=== PATIENT | female | born 1955 | race Two or more races ===

== ENCOUNTER 2019-11-26 21:58 | Inpatient (IN) | payer OTHER, MEDICAID ==
[~2019-11-26] VITALS: Ht 160 cm; Wt 75.4 kg
[2019-11-26 23:41] LABS: Basophils # (auto) 0 10 ^3/uL (0-0.2); Basophils % (auto) 0.1 % (0.0-2.0); Eosinophils # (auto) 0 10 ^3/uL (0-0.8); Hematocrit 40.6 % (36.0-46.0); Hemoglobin 13.6 g/dL (12.2-16.2); Lymphocytes # (auto) 0.3 10 ^3/uL (0.4-5.4); Lymphocytes % (auto) 2.6 % (10.0-50.0); Mean Corpuscular Hemoglobin 28.8 pg (28.0-32.0); Mean Corpuscular Hgb Conc. 33.5 g/dL (32.0-36.0); Mean Corpuscular Volume 86.1 fL (80.0-100.0); Monocytes # (auto) 0.6 10 ^3/uL (0-1.3); Monocytes % (auto) 5.1 % (0.0-12.0); Neutrophils # (auto) 11.5 10 ^3/uL (1.6-8.6); Neutrophils % (auto) 92.2 % (37.0-80.0); Nucleated Red Blood Cells % 0.4 %; Platelet Count (auto) 167 10^3/uL (140-450); Red Blood Cells 4.72 10^6/uL (4.0-5.20); Red Cell Distribution Width 13.7 % (11.8-14.3); White Blood Cell 12.5 10^3/uL (4.4-10.8)
[2019-11-27 00:11] LABS: Albumin 3.6 g/dL (3.4-5.0); Anion Gap 10 (5-15); Blood Urea Nitrogen 13 mg/dL (7-18); Calcium 9.1 mg/dL (8.5-10.1); Carbon Dioxide 24 mmol/L (21-32); Chloride 101 mmol/L (98-107); Glucose 249 mg/dL (74-106); Potassium 3.2 mmol/L (3.5-5.1); Sodium 135 mmol/L (136-145)
[2019-11-27 00:14] LABS: Alanine Aminotransferase 267 U/L (13-56); Aspartate Aminotransferase 608 U/L (15-37); BUN/Creatinine Ratio 13.5; GFR African American 75 mL/min; GFR Non-African American 62 mL/min
[2019-11-27 00:18] LABS: Alkaline Phosphatase 448 U/L (45-117); Bilirubin, Total 2.9 mg/dL (0.2-1.0); Total Protein 7.6 g/dL (6.4-8.2)
[2019-11-27 06:24] LABS: Urine Bacteria MANY /hpf (None Seen); Urine Blood TRACE /uL (Negative); Urine Mucus MANY (None Seen); Urine Specific Gravity 1.031 (1.001-1.035); Urine WBC 43 /hpf (0 - 5)
[2019-11-27] MEDS ORDERED: POTASSIUM CHL 20MEQ/100ML 100 ML IV ONE ×2 (07:15→09:30)
[2019-11-27] MEDS ORDERED: PIPERACILLIN-TAZOB 3.375GM 100 ML IV ONE (07:15)
[2019-11-27] MEDS ORDERED: SODIUM CHLORIDE 0.9% 1,000 ML IV ONE ×2 (07:15)
[2019-11-27 07:58] LABS: Lactic Acid w/Reflex 2.1 mmol/L (0.4-2.0)
[2019-11-27] MEDS ORDERED: NITROGLYCERIN 0.4 MG SL TAB SL PRN ×2 (09:30→09:45)
[2019-11-27] MEDS ORDERED: MORPHINE SULF INJ 2 MG/ML SYRINGE 1ML IV PRN ×3 (09:30→09:45)
[2019-11-27] MEDS: SOD CHL 0.9%/ KCL 20MEQ 1,000 ML IV SCH ×2 (09:30→19:39)
[2019-11-27] MEDS ORDERED: ONDANSETRON HCL 4 MG/2 ML VIAL IV PRN (09:45)
[2019-11-27] MEDS ORDERED: ACETAMINOPHEN 325 MG TAB PO PRN (09:45)
[2019-11-27] MEDS ORDERED: DEXTROSE (50%) 50ML SYRG IV PRN (09:45)
[2019-11-27] MEDS ORDERED: ALUM & MAG HYDROX-SIMETH LIQ(MAALOX) 30 ML PO PRN (09:45)
[2019-11-27] MEDS ORDERED: DOCUSATE SOD 100 MG CAP PO PRN (09:45)
[2019-11-27] MEDS ORDERED: HYDROcodone-ACET 5/325MG TAB PO PRN (09:45)
[2019-11-27] MEDS ORDERED: LORazepam 0.5 MG TAB PO PRN (09:45)
[2019-11-27] MEDS ORDERED: PANTOPRAZOLE 40 MG/10 ML VIAL INJ IV ONE (10:00)
[2019-11-27] MEDS ORDERED: metroNIDAZOLE 500MG/100ML 100 ML IV ONE (10:00)
[2019-11-27] MEDS ORDERED: hydrALAZINE HCL 25 MG TAB PO PRN (10:00)
[2019-11-27] MEDS ORDERED: cefTRIAXone 1GM/50ML D5W 50 ML IV ONE (10:00)
[2019-11-27 10:14] LABS: Cholesterol 103 mg/dL (< 200)
[2019-11-27 10:18] LABS: HDL Cholesterol 49 mg/dL (40-59); LDL Cholesterol 47 mg/dL (< 100); Triglycerides 76 mg/dL (< 150)
[2019-11-27] MEDS: METOPROLOL TARTRATE 25 MG TAB PO SCH ×2 (10:23→22:55)
[2019-11-27] MEDS: PANTOPRAZOLE 40 MG/10 ML VIAL INJ IV SCH (10:23)
[2019-11-27] MEDS: busPIRone HCL 10 MG TAB PO SCH ×2 (10:23→22:55)
[2019-11-27] MEDS: ASPirin 81 mg TAB PO SCH (10:23)
[2019-11-27] MEDS: LISINOPRIL 10 MG TAB PO SCH (10:33)
[2019-11-27] MEDS: ACCU-CHEK COMFORT CURVE STRIP VI SCH ×3 (11:58→22:47)
[2019-11-27] MEDS: InsuLIN REG 1unit/0.01ml Soln (100units/ml) SC SCH ×2 (11:58→17:41)
[2019-11-27 17:00] VITALS: BP 126/65
--- NOTE | 2019-11-27 17:09 | NUR ---
PATIENT ARRIVED TO UNIT. AWAKE, ALERT, ORIENTEDx4. DENIES ANY DISCOMFORT AT MOMENT. ABDOMEN SOF TO PALPATION, DENIES ABD PAIN, NAUSEA, VOMITING, DIARRHEA. BOWEL SOUNDS ACTIVE TO ALL QUADRANTS. IV PRESENT TO , RAC#[id number]. PT ORIENTED TO ROOM ENVIRONMENT. BED LOCKED AND IN LOWEST POSITION, CALL LIGHT WITHIN REACH.
[2019-11-27] MEDS: metroNIDAZOLE 500MG/100ML 100 ML IV SCH (19:39)
[2019-11-27] MEDS ORDERED: ATEN50TA PO (19:46)
[2019-11-27] MEDS ORDERED: ATO40T PO (19:46)
[2019-11-27] MEDS ORDERED: OMEP20TA PO (19:46)
[2019-11-27] MEDS ORDERED: ASPI325T4 PO (19:46)
[2019-11-27] MEDS ORDERED: METF-370 PO (19:46)
[2019-11-27] MEDS ORDERED: CHOL20009 PO (19:46)
[2019-11-27] MEDS ORDERED: InsuLIN REG 1unit/0.01ml Soln (100units/ml) SC SCH (22:00)
[2019-11-27] MEDS ORDERED: ATORVASTATIN 20 MG TAB PO SCH (22:00)
[2019-11-27 23:06] VITALS: BP 124/69
[2019-11-28 00:22] LABS: Urine Bacteria FEW /hpf (None Seen); Urine Blood Negative /uL (Negative); Urine WBC 31 /hpf (0 - 5)
[2019-11-28 00:31] LABS: Alcohol, Urine < 3.0 mg/dL (0-10); Amphetamine Screen, Urine NEGATIVE (NEGATIVE); Barbiturate Scree,Urine NEGATIVE (NEGATIVE); Benzodiazephine Screen, Urine NEGATIVE (NEGATIVE); Cannabinoid Screen, Urine NEGATIVE (NEGATIVE); Cocaine Screen, Urine NEGATIVE (NEGATIVE); Opiate Scree,Urine NEGATIVE (NEGATIVE); Phencyclidine Screen, Urine NEGATIVE (NEGATIVE)
[2019-11-28] MEDS: metroNIDAZOLE 500MG/100ML 100 ML IV SCH ×3 (03:52→19:37)
[2019-11-28] MEDS: SOD CHL 0.9%/ KCL 20MEQ 1,000 ML IV SCH ×2 (04:35→15:21)
[2019-11-28 05:00] VITALS: BP 127/51
[2019-11-28] MEDS: ACCU-CHEK COMFORT CURVE STRIP VI SCH ×3 (05:50→18:06)
[2019-11-28] MEDS: InsuLIN REG 1unit/0.01ml Soln (100units/ml) SC SCH ×3 (05:55→18:00)
--- NOTE | 2019-11-28 08:30 | NUR ---
DR. HARGROVE IN TO SEE PT, PLANNED PROCEDURE AWARENESS. PLANNED ERCP. PT NPO AT THIS TIME.
[2019-11-28 09:00] VITALS: BP 136/70
[2019-11-28] MEDS: cefTRIAXone 1GM/50ML D5W 50 ML IV SCH (09:14)
[2019-11-28] MEDS: busPIRone HCL 10 MG TAB PO SCH (09:18)
[2019-11-28] MEDS: METOPROLOL TARTRATE 25 MG TAB PO SCH (09:18)
[2019-11-28] MEDS: ASPirin 81 mg TAB PO SCH (09:18)
[2019-11-28] MEDS: PANTOPRAZOLE 40 MG/10 ML VIAL INJ IV SCH (09:18)
[2019-11-28] MEDS: LISINOPRIL 10 MG TAB PO SCH (09:19)
[2019-11-28 09:28] LABS: INR 1.06 (0.9-1.15)
[2019-11-28 13:00] VITALS: BP 134/63
[2019-11-28] MEDS ORDERED: DEXTROSE (50%) 50ML SYRG IV PRN (13:45)
--- NOTE | 2019-11-28 14:50 | NUR ---
PT TRANSPORTED TO PRE-OP VIA BED. NO S/S OF DISTRESS.
[2019-11-28] MEDS ORDERED: IOHEXOL 300 MG/ML 100ML BOTTLE IJ ONE (15:04)
[2019-11-28] MEDS ORDERED: SUCCINYLCHOLINE CHLORIDE 20 MG/ML 10ML VIAL IV ONE (15:34)
[2019-11-28] MEDS ORDERED: LIDOCAINE 1% (LOCAL ANESTH.) PF 5ml SDV ONE (15:34)
[2019-11-28] MEDS ORDERED: MIDAZOLAM HCL 1MG/1ML-2 ML VIAL ONE (15:37)
[2019-11-28] MEDS ORDERED: ETOMIDATE (2MG/ML) 20ML VIAL IV ONE (15:38)
[2019-11-28] MEDS ORDERED: METOCLOPRAMIDE HCL 5MG/ml INJ 2ml VIAL ONE (15:38)
[2019-11-28] MEDS ORDERED: ROCURONIUM 10MG/ML 10ML VIAL IV ONE (15:39)
[2019-11-28] MEDS ORDERED: fentaNYL CITRATE 100 MCG/2 ML VL ONE (15:55)
[2019-11-28] MEDS ORDERED: NEOSTIGMINE 1 MG/ML INJ (10mg/10ML VIAL) ONE (16:46)
[2019-11-28] MEDS ORDERED: GLYCOPYRROLATE 0.2 MG/ML 1ML VIAL ONE (16:46)
[2019-11-28] MEDS ORDERED: NALOXONE HCL 0.4 MG/ML VIAL IV PRN (17:00)
[2019-11-28] MEDS ORDERED: ACCU-CHEK COMFORT CURVE STRIP VI ONE (17:00)
[2019-11-28] MEDS ORDERED: ONDANSETRON HCL 4 MG/2 ML VIAL IV PRN (17:00)
[2019-11-28] MEDS ORDERED: HYDROmorphone HCL 2 MG/ML VL IV PRN ×2 (17:00)
--- NOTE | 2019-11-28 17:45 | NUR ---
PT BACK TO UNIT. AWAKE, ALERT, ORIENTEDx4. DENIES ANY PAIN AT MOMENT. EFFORTLESS BREATHING ON 2LNC. BED LOCKED AND IN LOWEST POSITION, CALL LIGHT WITHIN REACH.
[2019-11-28 17:46] VITALS: BP 139/63
[2019-11-28 22:00] VITALS: BP 138/57
[2019-11-29] MEDS: SOD CHL 0.9%/ KCL 20MEQ 1,000 ML IV SCH ×2 (00:01→16:25)
[2019-11-29] MEDS: ACCU-CHEK COMFORT CURVE STRIP VI SCH ×4 (00:01→18:27)
[2019-11-29] MEDS: InsuLIN REG 1unit/0.01ml Soln (100units/ml) SC SCH ×4 (00:05→18:00)
[2019-11-29] MEDS: metroNIDAZOLE 500MG/100ML 100 ML IV SCH ×3 (04:08→22:22)
[2019-11-29 05:00] VITALS: BP 135/63
[2019-11-29 06:08] LABS: Basophils # (auto) 0 10 ^3/uL (0-0.2); Basophils % (auto) 0.3 % (0.0-2.0); Eosinophils # (auto) 0 10 ^3/uL (0-0.8); Eosinophils % (auto) 0.1 % (0.0-7.0); Hematocrit 37.1 % (36.0-46.0); Hemoglobin 12.6 g/dL (12.2-16.2); Lymphocytes # (auto) 1.1 10 ^3/uL (0.4-5.4); Lymphocytes % (auto) 15.6 % (10.0-50.0); Mean Corpuscular Hemoglobin 29.3 pg (28.0-32.0); Mean Corpuscular Hgb Conc. 33.8 g/dL (32.0-36.0); Mean Corpuscular Volume 86.5 fL (80.0-100.0); Monocytes # (auto) 0.6 10 ^3/uL (0-1.3); Monocytes % (auto) 8.6 % (0.0-12.0); Neutrophils # (auto) 5.3 10 ^3/uL (1.6-8.6); Neutrophils % (auto) 75.4 % (37.0-80.0); Platelet Count (auto) 159 10^3/uL (140-450); Red Blood Cells 4.29 10^6/uL (4.0-5.20); Red Cell Distribution Width 13.5 % (11.8-14.3)
[2019-11-29 06:18] LABS: Potassium 3.5 mmol/L (3.5-5.1)
[2019-11-29 06:30] LABS: Albumin 2.9 g/dL (3.4-5.0); BUN/Creatinine Ratio 9.7; Calcium 8.3 mg/dL (8.5-10.1); Total Protein 6.2 g/dL (6.4-8.2)
--- NOTE | 2019-11-29 08:00 | NUR ---
DR. HARGROVE at bed side discussing POC/ERCP results with patient. Patient verbalizes understanding.
[2019-11-29 08:56] VITALS: BP 136/56
[2019-11-29] MEDS: cefTRIAXone 1GM/50ML D5W 50 ML IV SCH (09:28)
[2019-11-29] MEDS: PANTOPRAZOLE 40 MG/10 ML VIAL INJ IV SCH (09:29)
--- NOTE | 2019-11-29 09:49 | NUR ---
Dr. Loving at bed side discussing POC. Patient verbalizes understanding. MD requested to call patients daughter BLADE for update. MD harper.
--- NOTE | 2019-11-29 12:22 | NUR ---
Nutrition Assessment Note please see attached link for complete assessment Est Energy needs BW 76 [id number] kcals (23-25 kcal/kgBW), Est Protein needs: 76-83 gms/day (1.0-1.1 gm/kgBW). Will continue to monitor and reassess prn. Addendum: 11/29/19 at [address] Amended: Links added.
[2019-11-29 13:00] VITALS: BP 133/68
--- NOTE | 2019-11-29 16:00 | NUR ---
IV removal RAC IV noted to be leaking, IV DC'd with clean sterile technique, catheter fully intact. Pressure dressing applied to site. Patient tolerated well.
--- NOTE | 2019-11-29 16:42 | NUR ---
IV removal LH IV noted to be leaking, IV DC'd with clean sterile technique, catheter fully intact. Pressure dressing applied to site. Patient tolerated well.
[2019-11-29 16:55] VITALS: BP 139/73
--- NOTE | 2019-11-29 18:02 | NUR ---
IV insertion IV access obtained, via clean sterile technique by inserting 22 gauge catheter at LFA after 1 attempt. IV secured properly. No trauma to site. Patient tolerated well.
[2019-11-29 20:00] VITALS: BP 133/60
[2019-11-29 22:00] VITALS: BP 138/65
[2019-11-30 05:00] VITALS: BP 161/74
[2019-11-30] MEDS: metroNIDAZOLE 500MG/100ML 100 ML IV SCH ×2 (05:39→12:41)
[2019-11-30] MEDS: SOD CHL 0.9%/ KCL 20MEQ 1,000 ML IV SCH (05:40)
[2019-11-30] MEDS: InsuLIN REG 1unit/0.01ml Soln (100units/ml) SC SCH ×3 (05:42→12:42)
[2019-11-30] MEDS: ACCU-CHEK COMFORT CURVE STRIP VI SCH ×3 (05:42→12:00)
[2019-11-30 07:18] LABS: Potassium 3.5 mmol/L (3.5-5.1)
--- NOTE | 2019-11-30 07:23 | NUR ---
PT RESTED WELL THROUGHOUT THE NIGHT; NO C/O PAIN;IV INTACT VSS.CALL LANG IN REACH.
--- NOTE | 2019-11-30 07:30 | NUR ---
Opening Shift Note Assumed care of patient, awake and alert. No S/S of distress/SOB or pain. Instructed on POC and to call for assist PRN, will continue to monitor for changes Q1hr and PRN. Fall precautions in place per safety protocol.
[2019-11-30 07:34] LABS: Albumin 2.9 g/dL (3.4-5.0); BUN/Creatinine Ratio 7.9; Calcium 8.6 mg/dL (8.5-10.1); Total Protein 6.2 g/dL (6.4-8.2)
[2019-11-30 08:34] VITALS: BP 141/79
[2019-11-30] MEDS: PANTOPRAZOLE 40 MG/10 ML VIAL INJ IV SCH (09:39)
[2019-11-30] MEDS: cefTRIAXone 1GM/50ML D5W 50 ML IV SCH (09:40)
[2019-11-30 12:32] VITALS: BP 141/74
[2019-11-30] MEDS ORDERED: METR500T PO (15:06)
[2019-11-30] MEDS ORDERED: LEVO500T21 PO (15:06)
[2019-11-30 15:44] VITALS: BP 141/74
--- NOTE | 2019-11-30 16:30 | NUR ---
Discharge instructions given as ordered. Encourage to follow up with PMD as instructed. All questions and concerns addressed. Patient verbalized understanding. Medication reconciliation form completed and copy given to patient. IV removed with catheter intact, pressure dressing applied. Telemetry unit returned to ICU. Patient taken to vehicle via wheelchair with all personal belongings, accompanied by staff . No distress noted at time of departure.
== END 2019-11-30 16:30 | disposition home or self-care (01) | DRG 436 ==
LOC: ER 22:07 → TELE 22:08 → TELE-WESTW 11-27 17:02
PROVIDERS: ADMIT Hospitalist; ATTEND Internal Medicine
PROC: 0FBC8ZX Excision of Ampulla of Vater, Via Natural or Artificial Opening Endoscopic, Diagnostic (ICD-10-PCS; 2019-11-28)
PROC: BF101ZZ Fluoroscopy of Bile Ducts using Low Osmolar Contrast (ICD-10-PCS; 2019-11-28)
PROC: 0F798DZ Dilation of Common Bile Duct with Intraluminal Device, Via Natural or Artificial Opening Endoscopic (ICD-10-PCS; principal; 2019-11-28 15:30)
DX: C24.1 Malignant neoplasm of ampulla of Vater (principal); K80.51 Calculus of bile duct without cholangitis or cholecystitis with obstruction; R65.10 Systemic inflammatory response syndrome (SIRS) of non-infectious origin without acute organ dysfunction; I95.9 Hypotension, unspecified; E11.9 Type 2 diabetes mellitus without complications; E66.01 Morbid (severe) obesity due to excess calories; Z20.828 Contact with and (suspected) exposure to other viral communicable diseases; K76.0 Fatty (change of) liver, not elsewhere classified; E78.5 Hyperlipidemia, unspecified; E87.6 Hypokalemia; I10 Essential (primary) hypertension; F41.9 Anxiety disorder, unspecified; Z79.4 Long term (current) use of insulin; Z68.29 Body mass index [BMI] 29.0-29.9, adult
CPT/HCPCS: 36415; 71045; 74018; 74176; 74181; 76001; 76705; 80053; 80061; 80307; 81001; 82962; 83036; 83605; 83690; 83735; 84484; 85025; 85610; 87040; 87086; 87426; 93005; C9113; G0378; J0330; J0696; J1815; J2250; J2405; J2543; J3480; J3490

== ENCOUNTER 2020-06-22 12:53 | Inpatient (IN) | payer OTHER, MEDICAID ==
[~2020-06-22] VITALS: Ht 154.9 cm; Wt 78.9 kg
[~2020-06-22 12:53] MED LIST: ASPI325T4 PO; ATEN50TA PO; ATO40T PO; CHOL20009 PO; LEVO500T31 PO; METF-370 PO; METR500T PO; OMEP20TA PO
[2020-06-22 13:59] LABS: Basophils # (auto) 0.1 10 ^3/uL (0-0.2); Basophils % (auto) 0.6 % (0.0-2.0); Eosinophils # (auto) 0 10 ^3/uL (0-0.8); Eosinophils % (auto) 0.3 % (0.0-7.0); Hematocrit 41.7 % (36.0-46.0); Hemoglobin 14.3 g/dL (12.2-16.2); Lymphocytes # (auto) 1.1 10 ^3/uL (0.4-5.4); Lymphocytes % (auto) 10.4 % (10.0-50.0); Mean Corpuscular Hemoglobin 31.1 pg (28.0-32.0); Mean Corpuscular Hgb Conc. 34.2 g/dL (32.0-36.0); Mean Corpuscular Volume 90.8 fL (80.0-100.0); Monocytes # (auto) 1.1 10 ^3/uL (0-1.3); Monocytes % (auto) 9.6 % (0.0-12.0); Neutrophils # (auto) 8.7 10 ^3/uL (1.6-8.6); Neutrophils % (auto) 79.1 % (37.0-80.0); Nucleated Red Blood Cells % 0.1 %; Platelet Count (auto) 222 10^3/uL (140-450); Red Blood Cells 4.59 10^6/uL (4.0-5.20); Red Cell Distribution Width 16.1 % (11.8-14.3)
[2020-06-22 14:18] LABS: Albumin 2.1 g/dL (3.4-5.0); Anion Gap 11 (5-15); Blood Urea Nitrogen 31 mg/dL (7-18); Calcium 8.7 mg/dL (8.5-10.1); Carbon Dioxide 20 mmol/L (21-32); Chloride 99 mmol/L (98-107); Glucose 290 mg/dL (74-106); Magnesium 2.9 mg/dL (1.6-2.6); Potassium 4.4 mmol/L (3.5-5.1); Sodium 130 mmol/L (136-145)
[2020-06-22 14:35] LABS: Alanine Aminotransferase 614 U/L (13-56); Alkaline Phosphatase 602 U/L (45-117); Aspartate Aminotransferase 2780 U/L (15-37); Bilirubin, Total 16.5 mg/dL (0.2-1.0); GFR African American 24 mL/min; GFR Non-African American 20 mL/min; Total Protein 6.9 g/dL (6.4-8.2)
[2020-06-22 14:37] LABS: BUN/Creatinine Ratio 12.2
[2020-06-22] MEDS ORDERED: ONDANSETRON HCL 4 MG/2 ML VIAL IV ONE (16:45)
[2020-06-22 16:58] LABS: INR 1.23 (0.9-1.15); Partial Thromboplastin Time 30.5 sec (23.0-31.2)
[2020-06-22] MEDS ORDERED: NITROGLYCERIN 0.4 MG SL TAB SL PRN (18:30)
[2020-06-22] MEDS ORDERED: MORPHINE SULF INJ 2 MG/ML SYRINGE 1ML IV PRN ×2 (18:30→19:00)
[2020-06-22] MEDS ORDERED: cefTRIAXone 1GM/50ML D5W 50 ML IV ONE (19:00)
[2020-06-22] MEDS: SODIUM CHLORIDE 0.9% 1,000 ML IV SCH (19:00)
[2020-06-22] MEDS ORDERED: FAMOTIDINE (10MG/ML) 2ML VL IV SCH (19:00)
[2020-06-22] MEDS ORDERED: LORazepam 0.5 MG TAB PO PRN (19:00)
[2020-06-22] MEDS ORDERED: PROMETHAZINE HCL 25 MG/ML 1ML IV PRN (19:00)
[2020-06-22] MEDS ORDERED: DEXTROSE (50%) 50ML SYRG IV PRN (19:00)
[2020-06-22 19:09] LABS: Amylase 126 U/L (25-115); Lipase 1018 U/L (73-393)
[2020-06-22 21:03] VITALS: BP 137/80
[2020-06-22 21:09] LABS: Urine Bacteria NONE SEEN /hpf (None Seen); Urine Blood 3+ /uL (Negative); Urine Budding Yeast MODERATE /hpf (None Seen); Urine Specific Gravity 1.016 (1.001-1.035); Urine WBC 1497 /hpf (0 - 5); Urine WBC Clumps PRESENT /hpf (None Seen)
[2020-06-22] MEDS: metroNIDAZOLE 500MG/100ML 100 ML IV SCH (21:34)
[2020-06-22] MEDS: ACCU-CHEK COMFORT CURVE STRIP VI SCH (21:47)
[2020-06-22 21:49] LABS: Creatine Kinase IFCC > 14000 U/L (26-192)
[2020-06-22] MEDS ORDERED: FAMO-12 PO (21:53)
[2020-06-22] MEDS ORDERED: ASPI-543 PO (21:53)
[2020-06-22] MEDS: InsuLIN REG 1unit/0.01ml Soln (100units/ml) SC SCH (21:58)
[2020-06-22 22:00] VITALS: BP 125/56
[2020-06-22 23:18] VITALS: BP 137/80
[2020-06-23 05:00] VITALS: BP 123/62
[2020-06-23] MEDS: metroNIDAZOLE 500MG/100ML 100 ML IV SCH ×3 (05:35→22:08)
[2020-06-23] MEDS: SODIUM CHLORIDE 0.9% 1,000 ML IV SCH ×3 (05:35→22:20)
[2020-06-23 05:52] LABS: Basophils # (auto) 0.1 10 ^3/uL (0-0.2); Basophils % (auto) 0.7 % (0.0-2.0); Eosinophils # (auto) 0.1 10 ^3/uL (0-0.8); Eosinophils % (auto) 0.8 % (0.0-7.0); Hematocrit 39.4 % (36.0-46.0); Hemoglobin 13.5 g/dL (12.2-16.2); Lymphocytes # (auto) 0.9 10 ^3/uL (0.4-5.4); Lymphocytes % (auto) 10.8 % (10.0-50.0); Mean Corpuscular Hemoglobin 31.2 pg (28.0-32.0); Mean Corpuscular Hgb Conc. 34.2 g/dL (32.0-36.0); Mean Corpuscular Volume 91.1 fL (80.0-100.0); Monocytes % (auto) 11.5 % (0.0-12.0); Neutrophils # (auto) 6.6 10 ^3/uL (1.6-8.6); Neutrophils % (auto) 76.2 % (37.0-80.0); Nucleated Red Blood Cells % 0.2 %; Platelet Count (auto) 177 10^3/uL (140-450); Red Blood Cells 4.32 10^6/uL (4.0-5.20); White Blood Cell 8.7 10^3/uL (4.4-10.8)
[2020-06-23 06:04] LABS: Albumin 1.8 g/dL (3.4-5.0); Calcium 8.3 mg/dL (8.5-10.1); INR 1.26 (0.9-1.15); Partial Thromboplastin Time 30.2 sec (23.0-31.2); Potassium 4.1 mmol/L (3.5-5.1)
[2020-06-23 06:23] LABS: Bilirubin, Total 14.1 mg/dL (0.2-1.0)
[2020-06-23] MEDS: ACCU-CHEK COMFORT CURVE STRIP VI SCH ×4 (06:24→22:09)
[2020-06-23] MEDS: InsuLIN REG 1unit/0.01ml Soln (100units/ml) SC SCH ×4 (06:30→22:14)
[2020-06-23 08:00] VITALS: BP 122/67
[2020-06-23 09:00] VITALS: BP 122/67
[2020-06-23] MEDS: cefTRIAXone 1GM/50ML D5W 50 ML IV SCH (09:24)
[2020-06-23] MEDS: FAMOTIDINE (10MG/ML) 2ML VL IV SCH (09:25)
[2020-06-23 13:00] VITALS: BP 130/68
[2020-06-23 17:00] VITALS: BP 141/75
[2020-06-23 22:00] VITALS: BP 132/64
[2020-06-24 05:00] VITALS: BP 133/63
[2020-06-24] MEDS: metroNIDAZOLE 500MG/100ML 100 ML IV SCH (05:56)
[2020-06-24] MEDS: ACCU-CHEK COMFORT CURVE STRIP VI SCH ×4 (05:57→21:47)
[2020-06-24] MEDS: InsuLIN REG 1unit/0.01ml Soln (100units/ml) SC SCH ×4 (06:09→21:46)
[2020-06-24 08:00] VITALS: BP_SYST 127; BP_SYST 149; BP_DIAS 65; BP_DIAS 97
[2020-06-24] MEDS: cefTRIAXone 1GM/50ML D5W 50 ML IV SCH (09:00)
[2020-06-24] MEDS: FAMOTIDINE (10MG/ML) 2ML VL IV SCH (09:57)
[2020-06-24] MEDS: SODIUM CHLORIDE 0.9% 1,000 ML IV SCH ×2 (09:58→21:00)
[2020-06-24 12:00] VITALS: BP 140/62
[2020-06-24 17:00] VITALS: BP 135/65
[2020-06-24 21:35] VITALS: BP 140/69
[2020-06-25 05:11] VITALS: BP 143/64
[2020-06-25 06:26] LABS: Albumin 1.4 g/dL (3.4-5.0); Calcium 8.2 mg/dL (8.5-10.1); Magnesium 3.2 mg/dL (1.6-2.6); Potassium 4.7 mmol/L (3.5-5.1)
[2020-06-25] MEDS: InsuLIN REG 1unit/0.01ml Soln (100units/ml) SC SCH ×4 (06:28→22:07)
[2020-06-25] MEDS: ACCU-CHEK COMFORT CURVE STRIP VI SCH ×4 (06:28→21:47)
[2020-06-25] MEDS: SODIUM CHLORIDE 0.9% 1,000 ML IV SCH ×3 (06:30→21:00)
[2020-06-25 06:51] LABS: BUN/Creatinine Ratio 13.2; Bilirubin, Total 12.3 mg/dL (0.2-1.0); Total Protein 5.4 g/dL (6.4-8.2)
[2020-06-25] MEDS ORDERED: SODIUM BICARBONATE 8.4 % INJ 50ML VIAL IV ONE ×2 (08:30→10:00)
[2020-06-25 08:56] VITALS: BP 147/68
[2020-06-25] MEDS: FAMOTIDINE (10MG/ML) 2ML VL IV SCH (10:00)
[2020-06-25] MEDS ORDERED: cefTRIAXone 1GM/50ML D5W 50 ML IV ONE (11:00)
[2020-06-25] MEDS ORDERED: SODIUM CHLORIDE 0.9% 1,000 ML IV SCH ×2 (11:00→12:30)
[2020-06-25 13:00] VITALS: BP 153/71
[2020-06-25 13:48] LABS: Phosphorus 4.9 mg/dL (2.5-4.90)
[2020-06-25] MEDS ORDERED: LORazepam 2MG/ML-1ML VIAL IV ONE (14:45)
[2020-06-25] MEDS: metroNIDAZOLE 500MG/100ML 100 ML IV SCH ×2 (15:30→21:55)
[2020-06-25 17:00] VITALS: BP 147/75
[2020-06-25 22:00] VITALS: BP 124/55
[2020-06-26] MEDS: SODIUM CHLORIDE 0.9% 1,000 ML IV SCH ×2 (04:33→15:52)
[2020-06-26] MEDS: metroNIDAZOLE 500MG/100ML 100 ML IV SCH (05:21)
[2020-06-26 05:44] VITALS: BP 136/65
[2020-06-26] MEDS: ACCU-CHEK COMFORT CURVE STRIP VI SCH ×4 (06:06→23:09)
[2020-06-26] MEDS: InsuLIN REG 1unit/0.01ml Soln (100units/ml) SC SCH ×4 (06:06→23:05)
[2020-06-26 07:09] LABS: Basophils # (auto) 0 10 ^3/uL (0-0.2); Basophils % (auto) 0.3 % (0.0-2.0); Eosinophils # (auto) 0.1 10 ^3/uL (0-0.8); Eosinophils % (auto) 0.9 % (0.0-7.0); Hematocrit 40.6 % (36.0-46.0); Hemoglobin 13.7 g/dL (12.2-16.2); Lymphocytes # (auto) 1.1 10 ^3/uL (0.4-5.4); Lymphocytes % (auto) 9.4 % (10.0-50.0); Mean Corpuscular Hgb Conc. 33.8 g/dL (32.0-36.0); Mean Corpuscular Volume 91.7 fL (80.0-100.0); Monocytes # (auto) 1.1 10 ^3/uL (0-1.3); Monocytes % (auto) 9.9 % (0.0-12.0); Neutrophils # (auto) 9.2 10 ^3/uL (1.6-8.6); Neutrophils % (auto) 79.5 % (37.0-80.0); Nucleated Red Blood Cells % 0.1 %; Platelet Count (auto) 201 10^3/uL (140-450); Red Blood Cells 4.43 10^6/uL (4.0-5.20); Red Cell Distribution Width 16.1 % (11.8-14.3); White Blood Cell 11.6 10^3/uL (4.4-10.8)
[2020-06-26 07:27] LABS: Albumin 1.4 g/dL (3.4-5.0); BUN/Creatinine Ratio 12.4; Calcium 8.2 mg/dL (8.5-10.1); INR 1.44 (0.9-1.15); Magnesium 2.8 mg/dL (1.6-2.6); Potassium 5.2 mmol/L (3.5-5.1)
[2020-06-26 07:36] LABS: Bilirubin, Total 13.5 mg/dL (0.2-1.0); Total Protein 5.6 g/dL (6.4-8.2)
[2020-06-26 09:00] VITALS: BP 134/66
[2020-06-26] MEDS ORDERED: cefTRIAXone 1GM/50ML D5W 50 ML IV SCH (09:00)
[2020-06-26] MEDS ORDERED: ALBUTEROL SULF 2.5 MG/0.5ML(0.5%) NEB SOLN NEB ONE ×2 (09:15→19:00)
[2020-06-26] MEDS ORDERED: SODIUM BICARBONATE 8.4% INJ 50ML SYRINGE IV ONE (09:15)
[2020-06-26] MEDS ORDERED: BUMETANIDE 2.5mg/10ml (0.25 mg/ml) INJ IV ONE ×2 (09:15→19:30)
[2020-06-26] MEDS ORDERED: IOHEXOL 300 MG/ML 100ML BOTTLE IJ ONE (09:27)
[2020-06-26] MEDS ORDERED: SODIUM BICARBONATE 8.4 % INJ 50ML VIAL IV ONE ×3 (09:30→19:30)
[2020-06-26] MEDS: FAMOTIDINE (10MG/ML) 2ML VL IV SCH (10:32)
[2020-06-26 11:27] LABS: Urine Bacteria MANY /hpf (None Seen); Urine Blood 3+ /uL (Negative); Urine Specific Gravity 1.016 (1.001-1.035); Urine WBC 1140 /hpf (0 - 5); Urine WBC Clumps PRESENT /hpf (None Seen)
[2020-06-26 11:54] LABS: Protein, Urine 356.4 mg/dL (0.0-11.9)
[2020-06-26 13:00] VITALS: BP 113/52
[2020-06-26 17:00] VITALS: BP 117/50
[2020-06-26 18:48] LABS: BUN/Creatinine Ratio 14.3; Calcium 8.1 mg/dL (8.5-10.1)
[2020-06-26 18:55] LABS: Potassium 5.6 mmol/L (3.5-5.1)
[2020-06-26] MEDS ORDERED: DEXTROSE (50%) 50ML SYRG IV ONE (19:00)
[2020-06-26] MEDS ORDERED: CALCIUM GLUC 1,000mg/50ml-NS 50 ML IV ONE (19:00)
[2020-06-26] MEDS ORDERED: InsuLIN REG 1unit/0.01ml Soln (100units/ml) IV ONE (19:00)
[2020-06-26] MEDS ORDERED: SODIUM CHLORIDE 0.9% 1,000 ML IV SCH (19:30)
[2020-06-26] MEDS ORDERED: SODIUM BICARBONATE 50ML VIAL 150 ML in D5W 5% 1,000 ML IV ONE (19:45)
[2020-06-26 22:00] VITALS: BP 125/55
[2020-06-27 05:00] VITALS: BP 137/60
[2020-06-27] MEDS: BUMETANIDE 2.5mg/10ml (0.25 mg/ml) INJ IV SCH ×2 (06:37→19:07)
[2020-06-27] MEDS: InsuLIN REG 1unit/0.01ml Soln (100units/ml) SC SCH ×4 (06:38→22:10)
[2020-06-27] MEDS: ACCU-CHEK COMFORT CURVE STRIP VI SCH ×4 (06:38→22:09)
[2020-06-27 06:53] LABS: Albumin 1.3 g/dL (3.4-5.0)
[2020-06-27] MEDS ORDERED: IOHEXOL 300 MG/ML 100ML BOTTLE IJ ONE (07:05)
[2020-06-27 07:19] LABS: BUN/Creatinine Ratio 14.4; Total Protein 5.4 g/dL (6.4-8.2)
[2020-06-27] MEDS ORDERED: FAMOTIDINE (10MG/ML) 2ML VL IV ONE (07:25)
[2020-06-27] MEDS ORDERED: fentaNYL CITRATE 100 MCG/2 ML VL ONE ×2 (07:27→12:56)
[2020-06-27] MEDS ORDERED: MIDAZOLAM HCL 1MG/1ML-2 ML VIAL ONE ×2 (07:28→12:57)
[2020-06-27] MEDS ORDERED: GLYCOPYRROLATE 0.2 MG/ML 1ML VIAL ONE (07:28)
[2020-06-27] MEDS ORDERED: ONDANSETRON HCL 4 MG/2 ML VIAL ONE (07:28)
[2020-06-27] MEDS ORDERED: PROPOFOL 10 MG/ML 20 ML IV ONE (07:28)
[2020-06-27] MEDS ORDERED: KETAMINE HCL 10 ML ONE (08:03)
[2020-06-27] MEDS ORDERED: NEOMYCIN-BACITRACIN-POLYM 15GM TOP OINT TOP ONE (08:20)
[2020-06-27] MEDS ORDERED: HYDROmorphone HCL 2 MG/ML VL IV PRN (08:45)
[2020-06-27] MEDS ORDERED: ONDANSETRON HCL 4 MG/2 ML VIAL IV PRN (08:45)
[2020-06-27] MEDS: FAMOTIDINE (10MG/ML) 2ML VL IV SCH (10:00)
[2020-06-27] MEDS ORDERED: HEPARIN 1,000 UNITS/ml 1ML VIAL IV ONE (10:30)
[2020-06-27] MEDS ORDERED: MORPHINE SULF INJ 2 MG/ML SYRINGE 1ML IV ONE (10:30)
[2020-06-27] MEDS ORDERED: SODIUM CHL 0.9% 1000 ML BAG XX ONE (10:45)
[2020-06-27] MEDS ORDERED: cefTRIAXone 1GM/50ML D5W 50 ML IV ONE (11:00)
[2020-06-27 12:12] LABS: Hepatitis A Ab IgM Negative
[2020-06-27 12:13] LABS: Hepatitis B Core IgM Negative; Hepatitis B Surface Antigen Negative (Negative); Hepatitis C Antibody Negative (Negative)
[2020-06-27 12:35] VITALS: BP 137/62
[2020-06-27] MEDS ORDERED: LIDOCAINE 2%HCL (LOCAL ANESTH.) INJ 20ML MDV ONE (12:57)
[2020-06-27 16:35] VITALS: BP 114/76
[2020-06-27 22:22] VITALS: BP 127/50
[2020-06-28] MEDS ORDERED: cefTRIAXone 1GM/50ML D5W 50 ML IV SCH (09:00)
[2020-06-28] MEDS ORDERED: predniSONE 20 MG TAB PO SCH (10:00)
== END 2020-06-28 01:49 | disposition short-term general hospital (02) | DRG 444 ==
LOC: ER 12:53 → TELE 18:20 → TELE-CENTR 20:01
PROVIDERS: ADMIT Internal Medicine; ATTEND Internal Medicine
PROC: BF101ZZ Fluoroscopy of Bile Ducts using Low Osmolar Contrast (ICD-10-PCS; 2020-06-27)
PROC: 06HM33Z Insertion of Infusion Device into Right Femoral Vein, Percutaneous Approach (ICD-10-PCS; 2020-06-27)
PROC: B54BZZA Ultrasonography of Right Lower Extremity Veins, Guidance (ICD-10-PCS; 2020-06-27)
PROC: 5A1D70Z Performance of Urinary Filtration, Intermittent, Less than 6 Hours Per Day (ICD-10-PCS; 2020-06-27)
PROC: 0FB98ZX Excision of Common Bile Duct, Via Natural or Artificial Opening Endoscopic, Diagnostic (ICD-10-PCS; principal; 2020-06-27 07:35)
DX: K83.1 Obstruction of bile duct (principal); N17.0 Acute kidney failure with tubular necrosis; C25.9 Malignant neoplasm of pancreas, unspecified; M62.82 Rhabdomyolysis; I82.441 Acute embolism and thrombosis of right tibial vein; R65.10 Systemic inflammatory response syndrome (SIRS) of non-infectious origin without acute organ dysfunction; D68.9 Coagulation defect, unspecified; E87.2 Acidosis; E44.0 Moderate protein-calorie malnutrition; E87.5 Hyperkalemia; K72.90 Hepatic failure, unspecified without coma; Z53.8 Procedure and treatment not carried out for other reasons; K57.10 Diverticulosis of small intestine without perforation or abscess without bleeding; E78.5 Hyperlipidemia, unspecified; Z20.822 Contact with and (suspected) exposure to COVID-19; E11.9 Type 2 diabetes mellitus without complications; R58 Hemorrhage, not elsewhere classified; I10 Essential (primary) hypertension; E66.9 Obesity, unspecified; Z68.28 Body mass index [BMI] 28.0-28.9, adult; Z83.3 Family history of diabetes mellitus; Z86.16 Personal history of COVID-19; Z87.01 Personal history of pneumonia (recurrent)
CPT/HCPCS: 36415; 70450; 71045; 72148; 73502; 74018; 74176; 76000; 76775; 80048; 80053; 80074; 81001; 82150; 82378; 82550; 82570; 82962; 83036; 83516; 83690; 83735; 84100; 84156; 84300; 84439; 84443; 84484; 85025; 85610; 85652; 85730; 86141; 86160; 86225; 86235; 86431; 86850; 86900; 86901; 87086; 87426; 93005; 93970; 94640; 94644; 96361; 96374; 97163; 97530; G0378; J0696; J1815; J2250; J2405; J2704; J3490

== ENCOUNTER 2020-07-10 23:31 | Inpatient (IN) | payer OTHER, MEDICAID ==
[~2020-07-10] VITALS: Ht 154.9 cm; Wt 90.7 kg
[~2020-07-10 23:31] MED LIST changes: +ASPI-543 PO; -ASPI325T4 PO; +FAMO-12 PO; -LEVO500T31 PO; -METR500T PO; -OMEP20TA PO
[2020-07-11] VITALS (12 sets, daily range): BP systolic 80–115; BP diastolic 32–57
[2020-07-11 02:04] LABS: Mean Corpuscular Hgb Conc. 32.4 g/dL (32.0-36.0); White Blood Cell 14.5 10^3/uL (4.4-10.8)
[2020-07-11 02:06] LABS: Hematocrit 20.8 % (36.0-46.0); Mean Corpuscular Hemoglobin 33.1 pg (28.0-32.0); Mean Corpuscular Volume 102.2 fL (80.0-100.0); Platelet Count (auto) 208 10^3/uL (140-450); Red Blood Cells 2.04 10^6/uL (4.0-5.20)
[2020-07-11 02:07] LABS: Red Cell Distribution Width 22.2 % (11.8-14.3)
[2020-07-11 02:10] LABS: Hemoglobin 6.8 g/dL (12.2-16.2)
[2020-07-11 02:11] LABS: Basophils % (manual) 0 (0.0-2.0); Blast Cells 0; Eosinophils % (manual) 0 (0-7); Metamyelocytes % 0; Myelocytes % 0; Promyelocytes % 0; Reactive Lymphocytes 0
[2020-07-11 02:23] LABS: Albumin 1.5 g/dL (3.4-5.0); BUN/Creatinine Ratio 17.6; Calcium 7.8 mg/dL (8.5-10.1); Potassium 3.7 mmol/L (3.5-5.1)
[2020-07-11 02:24] LABS: INR 1.67 (0.9-1.15); Partial Thromboplastin Time 35.9 sec (23.0-31.2)
[2020-07-11 02:28] LABS: Bilirubin, Total 10.2 mg/dL (0.2-1.0); Total Protein 4.8 g/dL (6.4-8.2)
[2020-07-11 02:43] LABS: Band Neutrophils % (manual) 2; Lymphocytes % (manual) 17 (10.0-50.0); Monocytes % (manual) 9 (0-12)
[2020-07-11 04:46] LABS: Lactic Acid w/Reflex 2.4 mmol/L (0.4-2.0)
[2020-07-11] MEDS ORDERED: MORPHINE SULF INJ 2 MG/ML SYRINGE 1ML IV PRN (06:45)
[2020-07-11] MEDS ORDERED: VANCOMYCIN PER PHARMACY 0 MG IV SCH (06:45)
[2020-07-11] MEDS ORDERED: DEXTROSE (50%) 50ML SYRG IV PRN (06:45)
[2020-07-11] MEDS ORDERED: NITROGLYCERIN 0.4 MG SL TAB SL PRN (06:45)
[2020-07-11] MEDS ORDERED: SODIUM CHLORIDE 0.9% 1,000 ML IV SCH (06:45)
[2020-07-11] MEDS ORDERED: ACETAMINOPHEN 325 MG TAB PO PRN (06:45)
[2020-07-11] MEDS: InsuLIN REG 1unit/0.01ml Soln (100units/ml) SC SCH ×4 (07:00→21:40)
[2020-07-11] MEDS: ACCU-CHEK COMFORT CURVE STRIP VI SCH ×4 (07:00→21:41)
[2020-07-11] MEDS ORDERED: PIPERACILLIN-TAZOB 0.75 GM in D5W 5% 50 ML IV SCH (08:45)
[2020-07-11] MEDS ORDERED: VANCOMYCIN 1GM/250ML 250 ML IV ONE (09:45)
[2020-07-11] MEDS ORDERED: ATENOLOL 50 MG TAB PO SCH (10:00)
[2020-07-11] MEDS ORDERED: ENALAPRIL MALEATE 2.5 MG TAB PO SCH (10:00)
[2020-07-11] MEDS: PANTOPRAZOLE 40 MG TAB PO SCH (10:28)
[2020-07-11] MEDS: PIPERACILLIN-TAZOB 2.25GM 50 ML IV SCH ×2 (10:28→21:40)
[2020-07-11 22:03] LABS: Hematocrit 23.5 % (36.0-46.0); Hemoglobin 7.8 g/dL (12.2-16.2); Mean Corpuscular Hemoglobin 33.6 pg (28.0-32.0); Mean Corpuscular Hgb Conc. 33.2 g/dL (32.0-36.0); Mean Corpuscular Volume 101.2 fL (80.0-100.0); Platelet Count (auto) 253 10^3/uL (140-450); Red Blood Cells 2.32 10^6/uL (4.0-5.20); White Blood Cell 16.8 10^3/uL (4.4-10.8)
[2020-07-11 22:04] LABS: Red Cell Distribution Width 20.7 % (11.8-14.3)
[2020-07-11 22:07] LABS: Basophils % (manual) 0 (0.0-2.0); Blast Cells 0; Myelocytes % 0; Promyelocytes % 0; Reactive Lymphocytes 0
[2020-07-11 22:19] LABS: Potassium 4.3 mmol/L (3.5-5.1)
[2020-07-11 22:26] LABS: Albumin 1.4 g/dL (3.4-5.0); Bilirubin, Total 10.4 mg/dL (0.2-1.0); Calcium 7.9 mg/dL (8.5-10.1); Total Protein 4.4 g/dL (6.4-8.2)
[2020-07-11] MEDS: MIDODRINE HCL 10 MG TAB PO SCH (22:37)
[2020-07-11] MEDS: DOPamine 1600MCG/ML D5W 250 ML IV SCH (23:01)
[2020-07-11 23:04] LABS: Band Neutrophils % (manual) 2; Eosinophils % (manual) 2 (0-7); Lymphocytes % (manual) 11 (10.0-50.0); Metamyelocytes % 1; Monocytes % (manual) 8 (0-12)
[2020-07-11] MEDS: HYDROcodone-ACET 5/325MG TAB PO PRN (23:58)
[2020-07-12] VITALS (64 sets, daily range): BP systolic 80–116; BP diastolic 25–53
[2020-07-12] MEDS: MIDODRINE HCL 10 MG TAB PO SCH ×3 (05:53→21:50)
[2020-07-12] MEDS: ACCU-CHEK COMFORT CURVE STRIP VI SCH ×4 (05:53→21:50)
[2020-07-12] MEDS: InsuLIN REG 1unit/0.01ml Soln (100units/ml) SC SCH ×4 (06:02→21:30)
[2020-07-12 06:46] LABS: Hemoglobin 9.4 g/dL (12.2-16.2); Mean Corpuscular Hemoglobin 33.3 pg (28.0-32.0); Mean Corpuscular Hgb Conc. 33.4 g/dL (32.0-36.0); Mean Corpuscular Volume 99.6 fL (80.0-100.0); Platelet Count (auto) 334 10^3/uL (140-450); Red Blood Cells 2.81 10^6/uL (4.0-5.20); White Blood Cell 18.4 10^3/uL (4.4-10.8)
[2020-07-12 07:00] LABS: Albumin 1.6 g/dL (3.4-5.0); Calcium 8.3 mg/dL (8.5-10.1); Potassium 4.5 mmol/L (3.5-5.1)
[2020-07-12 07:04] LABS: BUN/Creatinine Ratio 20.9; Bilirubin, Total 13.1 mg/dL (0.2-1.0); Total Protein 5.4 g/dL (6.4-8.2)
[2020-07-12 07:07] LABS: Red Cell Distribution Width 20.8 % (11.8-14.3)
[2020-07-12 07:09] LABS: Basophils % (manual) 0 (0.0-2.0); Blast Cells 0; Metamyelocytes % 0; Myelocytes % 0; Promyelocytes % 0; Reactive Lymphocytes 0
[2020-07-12] MEDS ORDERED: VANCOMYCIN PER PHARMACY 0 MG IV SCH (08:45)
[2020-07-12] MEDS ORDERED: SODIUM CHLORIDE 0.9% 500 ML IV ONE (08:45)
[2020-07-12] MEDS: PANTOPRAZOLE 40 MG TAB PO SCH (09:51)
[2020-07-12 10:01] LABS: Band Neutrophils % (manual) 4; Eosinophils % (manual) 2 (0-7); Lymphocytes % (manual) 14 (10.0-50.0); Monocytes % (manual) 12 (0-12)
[2020-07-12] MEDS ORDERED: VANCOMYCIN 1GM/250ML 250 ML IV ONE ×2 (10:15→12:00)
[2020-07-12] MEDS: MEROPENEM 500MG IVPB 50 ML IV SCH ×2 (10:28→21:14)
[2020-07-12 11:24] LABS: Urine Bacteria FEW /hpf (None Seen); Urine Blood 3+ /uL (Negative); Urine Specific Gravity 1.018 (1.001-1.035); Urine WBC 1787 /hpf (0 - 5); Urine WBC Clumps PRESENT /hpf (None Seen)
[2020-07-12] MEDS: DOPamine 1600MCG/ML D5W 250 ML IV SCH ×2 (13:20→22:00)
[2020-07-12] MEDS: NOREPINEPHRINE 8 MG/250ML KIT 250 ML IV SCH (14:15)
[2020-07-13] VITALS (88 sets, daily range): BP systolic 76–133; BP diastolic 21–56
[2020-07-13] MEDS: HYDROcodone-ACET 5/325MG TAB PO PRN (03:02)
[2020-07-13 03:57] LABS: Hematocrit 29.3 % (36.0-46.0); Hemoglobin 9.9 g/dL (12.2-16.2); Mean Corpuscular Hemoglobin 33.8 pg (28.0-32.0); Mean Corpuscular Hgb Conc. 33.8 g/dL (32.0-36.0); Mean Corpuscular Volume 100.2 fL (80.0-100.0); Platelet Count (auto) 367 10^3/uL (140-450); Red Blood Cells 2.92 10^6/uL (4.0-5.20); White Blood Cell 17.5 10^3/uL (4.4-10.8)
[2020-07-13 04:10] LABS: Albumin 1.4 g/dL (3.4-5.0); Magnesium 2.7 mg/dL (1.6-2.6); Potassium 4.6 mmol/L (3.5-5.1)
[2020-07-13 04:14] LABS: Bilirubin, Total 12.8 mg/dL (0.2-1.0); Total Protein 5.1 g/dL (6.4-8.2)
[2020-07-13 04:21] LABS: Band Neutrophils % (manual) 0; Basophils % (manual) 0 (0.0-2.0); Blast Cells 0; Metamyelocytes % 0; Myelocytes % 0; Promyelocytes % 0; Reactive Lymphocytes 0; Red Cell Distribution Width 20.1 % (11.8-14.3)
[2020-07-13 04:32] LABS: INR 1.2 (0.9-1.15)
[2020-07-13 04:49] LABS: Eosinophils % (manual) 2 (0-7); Lymphocytes % (manual) 11 (10.0-50.0); Monocytes % (manual) 13 (0-12)
[2020-07-13] MEDS: ONDANSETRON HCL 4 MG/2 ML VIAL IV PRN ×2 (04:56→10:16)
[2020-07-13] MEDS: MIDODRINE HCL 10 MG TAB PO SCH ×3 (05:10→21:10)
[2020-07-13] MEDS: InsuLIN REG 1unit/0.01ml Soln (100units/ml) SC SCH ×4 (06:00→21:21)
[2020-07-13] MEDS: ACCU-CHEK COMFORT CURVE STRIP VI SCH ×4 (06:00→21:10)
[2020-07-13] MEDS: MEROPENEM 500MG IVPB 50 ML IV SCH ×2 (09:15→20:55)
[2020-07-13] MEDS: PANTOPRAZOLE 40 MG TAB PO SCH (09:16)
[2020-07-13] MEDS: MORPHINE SULF INJ 2 MG/ML SYRINGE 1ML IV PRN (09:17)
[2020-07-13] MEDS: DOPamine 1600MCG/ML D5W 250 ML IV SCH (10:34)
[2020-07-13] MEDS: NOREPINEPHRINE 8 MG/250ML KIT 250 ML IV SCH (12:46)
[2020-07-13] MEDS ORDERED: VANCOMYCIN 500 MG in D5W 5% 100 ML IV ONE (14:30)
[2020-07-14] VITALS (94 sets, daily range): BP systolic 79–129; BP diastolic 16–40
[2020-07-14] MEDS: DOPamine 1600MCG/ML D5W 250 ML IV SCH ×2 (01:02→15:43)
[2020-07-14 03:59] LABS: Hemoglobin 9.2 g/dL (12.2-16.2)
[2020-07-14 04:02] LABS: Hematocrit 27.4 % (36.0-46.0); Mean Corpuscular Hemoglobin 34.2 pg (28.0-32.0); Mean Corpuscular Hgb Conc. 33.5 g/dL (32.0-36.0); Mean Corpuscular Volume 102.2 fL (80.0-100.0); Platelet Count (auto) 331 10^3/uL (140-450); Red Blood Cells 2.68 10^6/uL (4.0-5.20); White Blood Cell 16.1 10^3/uL (4.4-10.8)
[2020-07-14] MEDS: NOREPINEPHRINE 8 MG/250ML KIT 250 ML IV SCH ×2 (04:14→12:18)
[2020-07-14 04:22] LABS: Band Neutrophils % (manual) 0; Basophils % (manual) 0 (0.0-2.0); Blast Cells 0; Metamyelocytes % 0; Myelocytes % 0; Promyelocytes % 0
[2020-07-14 04:26] LABS: Albumin 1.3 g/dL (3.4-5.0); Calcium 7.9 mg/dL (8.5-10.1); Potassium 4.7 mmol/L (3.5-5.1)
[2020-07-14 04:29] LABS: BUN/Creatinine Ratio 18.6; Total Protein 5.2 g/dL (6.4-8.2)
[2020-07-14 05:00] LABS: Eosinophils % (manual) 2 (0-7); Lymphocytes % (manual) 17 (10.0-50.0); Monocytes % (manual) 7 (0-12); Reactive Lymphocytes 1
[2020-07-14] MEDS: MIDODRINE HCL 10 MG TAB PO SCH ×3 (06:13→21:21)
[2020-07-14] MEDS: ACCU-CHEK COMFORT CURVE STRIP VI SCH ×4 (06:16→21:21)
[2020-07-14] MEDS: InsuLIN REG 1unit/0.01ml Soln (100units/ml) SC SCH ×4 (06:18→21:21)
[2020-07-14] MEDS: MEROPENEM 500MG IVPB 50 ML IV SCH ×2 (09:20→21:21)
[2020-07-14] MEDS: PANTOPRAZOLE 40 MG TAB PO SCH (10:16)
[2020-07-14] MEDS: MORPHINE SULF INJ 2 MG/ML SYRINGE 1ML IV PRN ×2 (13:54→21:23)
[2020-07-14] MEDS ORDERED: FUROSEMIDE 40 MG/4 ML VIAL IV ONE (17:15)
[2020-07-14] MEDS ORDERED: FUROSEMIDE IV ONE (17:30)
[2020-07-14] MEDS ORDERED: D5W 5% IV ONE (17:30)
[2020-07-14] MEDS ORDERED: DOPamine 3200MCG/ML 250 ML IV SCH (18:00)
[2020-07-14] MEDS: ONDANSETRON HCL 4 MG/2 ML VIAL IV PRN (18:14)
[2020-07-14] MEDS: NOREPINEPHRINE BITARTRATE 16 MG in SODIUM CHL 0.9% 234 ML IV SCH (21:24)
[2020-07-15] VITALS (93 sets, daily range): BP systolic 64–163; BP diastolic 19–59
[2020-07-15 00:54] LABS: INR 1.24 (0.9-1.15); Partial Thromboplastin Time 34.5 sec (23.0-31.2)
[2020-07-15 04:24] LABS: Hematocrit 26.9 % (36.0-46.0); Mean Corpuscular Hemoglobin 33.4 pg (28.0-32.0); Mean Corpuscular Hgb Conc. 33.4 g/dL (32.0-36.0); Platelet Count (auto) 305 10^3/uL (140-450); Red Blood Cells 2.69 10^6/uL (4.0-5.20); Red Cell Distribution Width 19.7 % (11.8-14.3)
[2020-07-15 04:41] LABS: Band Neutrophils % (manual) 0; Basophils % (manual) 0 (0.0-2.0); Blast Cells 0; Metamyelocytes % 0; Promyelocytes % 0; Reactive Lymphocytes 0
[2020-07-15 04:52] LABS: Albumin 1.3 g/dL (3.4-5.0); Potassium 5.4 mmol/L (3.5-5.1)
[2020-07-15 04:56] LABS: BUN/Creatinine Ratio 17.5; Bilirubin, Total 13.1 mg/dL (0.2-1.0); Total Protein 5.2 g/dL (6.4-8.2)
[2020-07-15 05:07] LABS: Eosinophils % (manual) 3 (0-7); Lymphocytes % (manual) 13 (10.0-50.0); Monocytes % (manual) 6 (0-12); Myelocytes % 2
[2020-07-15] MEDS: ACCU-CHEK COMFORT CURVE STRIP VI SCH ×4 (06:11→22:05)
[2020-07-15] MEDS: MIDODRINE HCL 10 MG TAB PO SCH ×4 (06:11→22:05)
[2020-07-15] MEDS: InsuLIN REG 1unit/0.01ml Soln (100units/ml) SC SCH ×4 (06:12→22:00)
[2020-07-15] MEDS: DOPamine 3200MCG/ML 250 ML IV SCH ×2 (07:41→21:30)
[2020-07-15] MEDS ORDERED: ALBUMIN 25% 100 ML IV ONE (08:00)
[2020-07-15] MEDS ORDERED: SODIUM CHL 0.9% 1000 ML BAG XX ONE (08:00)
[2020-07-15] MEDS: MEROPENEM 500MG IVPB 50 ML IV SCH ×2 (08:13→22:05)
[2020-07-15] MEDS: PANTOPRAZOLE 40 MG TAB PO SCH (09:53)
[2020-07-15] MEDS: SODIUM CHLOR 0.9% PF (SALINE LOCK) 10ML VIAL/SYR IV SCH ×2 (09:53→22:05)
[2020-07-15] MEDS: ONDANSETRON HCL 4 MG/2 ML VIAL IV PRN ×2 (10:25→18:27)
[2020-07-15] MEDS: NOREPINEPHRINE BITARTRATE 16 MG in SODIUM CHL 0.9% 234 ML IV SCH ×2 (11:30→18:00)
[2020-07-15] MEDS: PHENYLEPHRINE INJ 40 MG in SODIUM CHL 0.9% 246 ML IV SCH (15:30)
[2020-07-15] MEDS ORDERED: VANCOMYCIN 500 MG in D5W 5% 100 ML IV ONE (17:00)
[2020-07-16] VITALS (84 sets, daily range): BP systolic 81–133; BP diastolic 29–50
[2020-07-16 05:37] LABS: Basophils # (auto) 0.1 10 ^3/uL (0-0.2); Eosinophils # (auto) 0.1 10 ^3/uL (0-0.8); Hemoglobin 8.1 g/dL (12.2-16.2); Mean Corpuscular Volume 98.4 fL (80.0-100.0); White Blood Cell 13.3 10^3/uL (4.4-10.8)
[2020-07-16 05:41] LABS: Basophils % (auto) 0.9 % (0.0-2.0); Eosinophils % (auto) 0.8 % (0.0-7.0); Hematocrit 24.5 % (36.0-46.0); Lymphocytes # (auto) 1.7 10 ^3/uL (0.4-5.4); Lymphocytes % (auto) 12.5 % (10.0-50.0); Mean Corpuscular Hemoglobin 32.5 pg (28.0-32.0); Monocytes # (auto) 1.4 10 ^3/uL (0-1.3); Monocytes % (auto) 10.8 % (0.0-12.0); Platelet Count (auto) 230 10^3/uL (140-450); Red Blood Cells 2.49 10^6/uL (4.0-5.20); Red Cell Distribution Width 18.7 % (11.8-14.3)
[2020-07-16 05:57] LABS: Albumin 2.2 g/dL (3.4-5.0); Calcium 8.3 mg/dL (8.5-10.1); Potassium 4.4 mmol/L (3.5-5.1)
[2020-07-16 05:58] LABS: BUN/Creatinine Ratio 15.1
[2020-07-16 06:01] LABS: Bilirubin, Total 14.5 mg/dL (0.2-1.0); Total Protein 5.1 g/dL (6.4-8.2)
[2020-07-16] MEDS: ACCU-CHEK COMFORT CURVE STRIP VI SCH ×4 (06:06→21:41)
[2020-07-16] MEDS: InsuLIN REG 1unit/0.01ml Soln (100units/ml) SC SCH ×4 (06:06→21:41)
[2020-07-16] MEDS: MIDODRINE HCL 10 MG TAB PO SCH ×3 (06:06→21:42)
[2020-07-16] MEDS: PHENYLEPHRINE INJ 40 MG in SODIUM CHL 0.9% 246 ML IV SCH (08:08)
[2020-07-16] MEDS: PANTOPRAZOLE 40 MG TAB PO SCH (08:43)
[2020-07-16] MEDS: MEROPENEM 500MG IVPB 50 ML IV SCH ×2 (08:44→21:41)
[2020-07-16] MEDS: SODIUM CHLOR 0.9% PF (SALINE LOCK) 10ML VIAL/SYR IV SCH ×2 (08:52→21:41)
[2020-07-16] MEDS: DOPamine 3200MCG/ML 250 ML IV SCH (14:19)
[2020-07-16] MEDS: NOREPINEPHRINE BITARTRATE 16 MG in SODIUM CHL 0.9% 234 ML IV SCH (14:49)
[2020-07-16] MEDS: ONDANSETRON HCL 4 MG/2 ML VIAL IV PRN (21:42)
[2020-07-17] VITALS (74 sets, daily range): BP systolic 85–127; BP diastolic 25–53
[2020-07-17] MEDS: PHENYLEPHRINE INJ 40 MG in SODIUM CHL 0.9% 246 ML IV SCH ×2 (00:50→17:30)
[2020-07-17 04:55] LABS: Hematocrit 24.9 % (36.0-46.0); Hemoglobin 8.5 g/dL (12.2-16.2); Mean Corpuscular Hemoglobin 33.3 pg (28.0-32.0); Mean Corpuscular Hgb Conc. 33.9 g/dL (32.0-36.0); Mean Corpuscular Volume 98.1 fL (80.0-100.0); Platelet Count (auto) 262 10^3/uL (140-450); Red Blood Cells 2.54 10^6/uL (4.0-5.20); Red Cell Distribution Width 18.3 % (11.8-14.3); White Blood Cell 12.6 10^3/uL (4.4-10.8)
[2020-07-17 05:03] LABS: Albumin 1.7 g/dL (3.4-5.0); BUN/Creatinine Ratio 15.3; Magnesium 2.6 mg/dL (1.6-2.6)
[2020-07-17 05:05] LABS: Basophils % (manual) 0 (0.0-2.0); Blast Cells 0; Metamyelocytes % 0; Promyelocytes % 0; Reactive Lymphocytes 0
[2020-07-17 05:06] LABS: Bilirubin, Total 13.4 mg/dL (0.2-1.0)
[2020-07-17 05:09] LABS: Potassium 5.7 mmol/L (3.5-5.1)
[2020-07-17 05:31] LABS: Band Neutrophils % (manual) 1; Eosinophils % (manual) 2 (0-7); Lymphocytes % (manual) 16 (10.0-50.0); Monocytes % (manual) 5 (0-12); Myelocytes % 2
[2020-07-17] MEDS: ACCU-CHEK COMFORT CURVE STRIP VI SCH ×4 (06:50→22:00)
[2020-07-17] MEDS: MIDODRINE HCL 10 MG TAB PO SCH ×3 (06:51→21:35)
[2020-07-17] MEDS: InsuLIN REG 1unit/0.01ml Soln (100units/ml) SC SCH ×4 (06:51→21:46)
[2020-07-17] MEDS: NOREPINEPHRINE BITARTRATE 16 MG in SODIUM CHL 0.9% 234 ML IV SCH (07:50)
[2020-07-17] MEDS: ONDANSETRON HCL 4 MG/2 ML VIAL IV PRN (08:29)
[2020-07-17] MEDS: SODIUM CHLOR 0.9% PF (SALINE LOCK) 10ML VIAL/SYR IV SCH ×2 (09:25→21:36)
[2020-07-17] MEDS: PANTOPRAZOLE 40 MG TAB PO SCH (09:25)
[2020-07-17] MEDS: MEROPENEM 500MG IVPB 50 ML IV SCH ×2 (09:25→21:34)
[2020-07-17] MEDS ORDERED: MICAFUNGIN SODIUM 100 MG in SODIUM CHL 0.9% 100 ML IV STA (11:33)
[2020-07-17] MEDS ORDERED: ALBUMIN 25% 100 ML IV ONE (11:55)
[2020-07-17] MEDS: ALBUMIN 25% 100 ML IV SCH ×2 (12:41→12:50)
[2020-07-17] MEDS: DOPamine 3200MCG/ML 250 ML IV SCH ×2 (13:00→19:37)
[2020-07-18] VITALS (91 sets, daily range): BP systolic 79–123; BP diastolic 19–62
[2020-07-18] MEDS: NOREPINEPHRINE BITARTRATE 16 MG in SODIUM CHL 0.9% 234 ML IV SCH (01:32)
[2020-07-18 04:32] LABS: Basophils # (auto) 0.1 10 ^3/uL (0-0.2); Eosinophils # (auto) 0.2 10 ^3/uL (0-0.8); Mean Corpuscular Hemoglobin 33.5 pg (28.0-32.0); Nucleated Red Blood Cells % 0.1 %; Red Blood Cells 2.39 10^6/uL (4.0-5.20)
[2020-07-18 04:35] LABS: Basophils % (auto) 1.3 % (0.0-2.0); Eosinophils % (auto) 1.5 % (0.0-7.0); Hematocrit 23.6 % (36.0-46.0); Lymphocytes # (auto) 1.5 10 ^3/uL (0.4-5.4); Lymphocytes % (auto) 14.7 % (10.0-50.0); Mean Corpuscular Volume 98.5 fL (80.0-100.0); Monocytes # (auto) 1.1 10 ^3/uL (0-1.3); Monocytes % (auto) 10.2 % (0.0-12.0); Neutrophils # (auto) 7.5 10 ^3/uL (1.6-8.6); Neutrophils % (auto) 72.3 % (37.0-80.0); Platelet Count (auto) 210 10^3/uL (140-450); Red Cell Distribution Width 18.6 % (11.8-14.3); White Blood Cell 10.4 10^3/uL (4.4-10.8)
[2020-07-18 04:47] LABS: INR 1.4 (0.9-1.15)
[2020-07-18 04:50] LABS: Potassium 3.9 mmol/L (3.5-5.1)
[2020-07-18 04:56] LABS: Albumin 2.3 g/dL (3.4-5.0); BUN/Creatinine Ratio 12.8; Magnesium 2.4 mg/dL (1.6-2.6)
[2020-07-18] MEDS: MIDODRINE HCL 10 MG TAB PO SCH ×3 (06:19→21:26)
[2020-07-18] MEDS: ACCU-CHEK COMFORT CURVE STRIP VI SCH ×4 (06:21→21:26)
[2020-07-18] MEDS: InsuLIN REG 1unit/0.01ml Soln (100units/ml) SC SCH ×4 (06:21→21:38)
[2020-07-18] MEDS: SODIUM CHLOR 0.9% PF (SALINE LOCK) 10ML VIAL/SYR IV SCH ×2 (10:05→21:24)
[2020-07-18] MEDS: PANTOPRAZOLE 40 MG TAB PO SCH (10:05)
[2020-07-18] MEDS: MEROPENEM 500MG IVPB 50 ML IV SCH ×2 (10:10→21:24)
[2020-07-18] MEDS: MICAFUNGIN SODIUM 100 MG in SODIUM CHL 0.9% 100 ML IV SCH (10:50)
[2020-07-18] MEDS: ONDANSETRON HCL 4 MG/2 ML VIAL IV PRN (21:38)
[2020-07-19] VITALS (86 sets, daily range): BP systolic 79–137; BP diastolic 25–51
[2020-07-19 04:20] LABS: Basophils # (auto) 0.2 10 ^3/uL (0-0.2); Basophils % (auto) 1.5 % (0.0-2.0); Eosinophils # (auto) 0.1 10 ^3/uL (0-0.8); Eosinophils % (auto) 0.7 % (0.0-7.0); Hematocrit 25.7 % (36.0-46.0); Hemoglobin 8.8 g/dL (12.2-16.2); Lymphocytes # (auto) 1.7 10 ^3/uL (0.4-5.4); Lymphocytes % (auto) 15.9 % (10.0-50.0); Mean Corpuscular Hemoglobin 33.3 pg (28.0-32.0); Mean Corpuscular Hgb Conc. 34.1 g/dL (32.0-36.0); Mean Corpuscular Volume 97.5 fL (80.0-100.0); Monocytes # (auto) 0.9 10 ^3/uL (0-1.3); Monocytes % (auto) 8.3 % (0.0-12.0); Neutrophils % (auto) 73.6 % (37.0-80.0); Nucleated Red Blood Cells % 0.1 %; Platelet Count (auto) 219 10^3/uL (140-450); Red Blood Cells 2.64 10^6/uL (4.0-5.20); White Blood Cell 10.8 10^3/uL (4.4-10.8)
[2020-07-19 04:28] LABS: INR 1.47 (0.9-1.15)
[2020-07-19 04:31] LABS: Potassium 4.6 mmol/L (3.5-5.1)
[2020-07-19 04:38] LABS: BUN/Creatinine Ratio 12.5; Bilirubin, Total 12.7 mg/dL (0.2-1.0); Total Protein 4.8 g/dL (6.4-8.2)
[2020-07-19] MEDS: ACCU-CHEK COMFORT CURVE STRIP VI SCH ×4 (06:43→22:12)
[2020-07-19] MEDS: InsuLIN REG 1unit/0.01ml Soln (100units/ml) SC SCH ×4 (06:43→22:00)
[2020-07-19] MEDS: MIDODRINE HCL 10 MG TAB PO SCH ×3 (06:43→22:11)
[2020-07-19] MEDS: ONDANSETRON HCL 4 MG/2 ML VIAL IV PRN (08:54)
[2020-07-19] MEDS: MEROPENEM 500MG IVPB 50 ML IV SCH (09:00)
[2020-07-19] MEDS ORDERED: ALBUMIN 25% 200 ML IV ONE (09:26)
[2020-07-19] MEDS ORDERED: ALBUMIN 25% 100 ML IV ONE (09:30)
[2020-07-19] MEDS: NOREPINEPHRINE BITARTRATE 16 MG in SODIUM CHL 0.9% 234 ML IV SCH (09:53)
[2020-07-19] MEDS: SODIUM CHLOR 0.9% PF (SALINE LOCK) 10ML VIAL/SYR IV SCH ×2 (10:00→22:14)
[2020-07-19] MEDS: MICAFUNGIN SODIUM 100 MG in SODIUM CHL 0.9% 100 ML IV SCH (10:00)
[2020-07-19] MEDS ORDERED: PHYTONADIONE(VitK) ORAL Susp 10mg/10ml(1mg/ml) PO ONE (13:00)
[2020-07-19] MEDS: PANTOPRAZOLE 40 MG TAB PO SCH (14:43)
[2020-07-19] MEDS ORDERED: EPOETIN ALFA-EPBX 10,000 UNIT/1ML VIAL SC ONE (21:00)
[2020-07-20] VITALS (92 sets, daily range): BP systolic 79–138; BP diastolic 25–69
[2020-07-20 04:07] LABS: Hematocrit 26.2 % (36.0-46.0); Hemoglobin 8.6 g/dL (12.2-16.2)
[2020-07-20 04:23] LABS: INR 1.41 (0.9-1.15)
[2020-07-20] MEDS: ACCU-CHEK COMFORT CURVE STRIP VI SCH ×4 (06:06→22:48)
[2020-07-20] MEDS: MIDODRINE HCL 10 MG TAB PO SCH ×3 (06:06→22:47)
[2020-07-20] MEDS: InsuLIN REG 1unit/0.01ml Soln (100units/ml) SC SCH ×4 (06:08→22:48)
[2020-07-20] MEDS ORDERED: NOREPINEPHRINE BITARTRATE 2 ML IV ONE (08:19)
[2020-07-20] MEDS ORDERED: NOREPINEPHRINE 8 MG/250ML KIT 250 ML IV ONE (08:19)
[2020-07-20] MEDS: NOREPINEPHRINE BITARTRATE 16 MG in SODIUM CHL 0.9% 234 ML IV SCH (09:17)
[2020-07-20] MEDS: MICAFUNGIN SODIUM 100 MG in SODIUM CHL 0.9% 100 ML IV SCH (10:30)
[2020-07-20] MEDS: SODIUM CHLOR 0.9% PF (SALINE LOCK) 10ML VIAL/SYR IV SCH ×2 (10:30→21:51)
[2020-07-20] MEDS: PANTOPRAZOLE 40 MG TAB PO SCH (10:31)
[2020-07-20] MEDS: SODIUM CHLORIDE 0.9% 1,000 ML IV SCH ×2 (13:11→21:52)
[2020-07-20] MEDS: PHYTONADIONE(VitK) ORAL Susp 10mg/10ml(1mg/ml) PO SCH (14:04)
[2020-07-20] MEDS: ALBUMIN 25% 100 ML IV SCH ×2 (14:04→21:51)
[2020-07-20] MEDS: AMPICILLIN INJ 1 GM in SODIUM CHL 0.9% 50 ML IV SCH (18:31)
[2020-07-21] VITALS (96 sets, daily range): BP systolic 85–136; BP diastolic 26–58
[2020-07-21] MEDS: AMPICILLIN INJ 1 GM in SODIUM CHL 0.9% 50 ML IV SCH ×4 (00:29→22:02)
[2020-07-21] MEDS: NOREPINEPHRINE BITARTRATE 16 MG in SODIUM CHL 0.9% 234 ML IV SCH (00:30)
[2020-07-21] MEDS: ALBUMIN 25% 100 ML IV SCH (04:28)
[2020-07-21 04:39] LABS: Calcium 7.1 mg/dL (8.5-10.1); Potassium 3.2 mmol/L (3.5-5.1)
[2020-07-21 04:42] LABS: BUN/Creatinine Ratio 10.2
[2020-07-21] MEDS: MIDODRINE HCL 10 MG TAB PO SCH ×3 (06:23→22:01)
[2020-07-21] MEDS: InsuLIN REG 1unit/0.01ml Soln (100units/ml) SC SCH ×4 (06:23→22:00)
[2020-07-21] MEDS: ACCU-CHEK COMFORT CURVE STRIP VI SCH ×4 (06:23→22:02)
[2020-07-21] MEDS: SODIUM CHLORIDE 0.9% 1,000 ML IV SCH ×2 (09:00→19:09)
[2020-07-21] MEDS: SODIUM CHLOR 0.9% PF (SALINE LOCK) 10ML VIAL/SYR IV SCH ×2 (10:00→21:49)
[2020-07-21] MEDS: PHYTONADIONE(VitK) ORAL Susp 10mg/10ml(1mg/ml) PO SCH (11:15)
[2020-07-21] MEDS: MICAFUNGIN SODIUM 100 MG in SODIUM CHL 0.9% 100 ML IV SCH (11:15)
[2020-07-21] MEDS: PANTOPRAZOLE 40 MG TAB PO SCH (11:15)
[2020-07-22] VITALS (93 sets, daily range): BP systolic 92–124; BP diastolic 21–73
[2020-07-22 04:27] LABS: Hemoglobin 7.8 g/dL (12.2-16.2)
[2020-07-22 04:40] LABS: INR 1.36 (0.9-1.15)
[2020-07-22 04:41] LABS: BUN/Creatinine Ratio 9.6; Calcium 7.9 mg/dL (8.5-10.1); Magnesium 2.3 mg/dL (1.6-2.6); Potassium 3.6 mmol/L (3.5-5.1)
[2020-07-22] MEDS: NOREPINEPHRINE BITARTRATE 16 MG in SODIUM CHL 0.9% 234 ML IV SCH (05:53)
[2020-07-22] MEDS: MIDODRINE HCL 10 MG TAB PO SCH ×3 (05:54→21:37)
[2020-07-22] MEDS: InsuLIN REG 1unit/0.01ml Soln (100units/ml) SC SCH ×4 (05:57→21:58)
[2020-07-22] MEDS: ACCU-CHEK COMFORT CURVE STRIP VI SCH ×4 (05:57→21:58)
[2020-07-22] MEDS: PANTOPRAZOLE 40 MG TAB PO SCH (10:33)
[2020-07-22] MEDS: MICAFUNGIN SODIUM 100 MG in SODIUM CHL 0.9% 100 ML IV SCH (10:33)
[2020-07-22] MEDS: PHYTONADIONE(VitK) ORAL Susp 10mg/10ml(1mg/ml) PO SCH (10:33)
[2020-07-22] MEDS: AMPICILLIN INJ 1 GM in SODIUM CHL 0.9% 50 ML IV SCH ×2 (10:34→21:38)
[2020-07-22] MEDS: SODIUM CHLOR 0.9% PF (SALINE LOCK) 10ML VIAL/SYR IV SCH ×2 (10:34→21:38)
[2020-07-22] MEDS: ONDANSETRON HCL 4 MG/2 ML VIAL IV PRN (10:53)
[2020-07-23] VITALS (80 sets, daily range): BP systolic 83–119; BP diastolic 24–72
[2020-07-23 05:22] LABS: Basophils # (auto) 0.2 10 ^3/uL (0-0.2); Basophils % (auto) 1.4 % (0.0-2.0); Eosinophils # (auto) 0.2 10 ^3/uL (0-0.8); Eosinophils % (auto) 1.5 % (0.0-7.0); Hematocrit 23.2 % (36.0-46.0); Hemoglobin 7.5 g/dL (12.2-16.2); Lymphocytes # (auto) 2.4 10 ^3/uL (0.4-5.4); Lymphocytes % (auto) 21.5 % (10.0-50.0); Mean Corpuscular Hemoglobin 31.2 pg (28.0-32.0); Mean Corpuscular Hgb Conc. 32.4 g/dL (32.0-36.0); Mean Corpuscular Volume 96.2 fL (80.0-100.0); Monocytes # (auto) 0.9 10 ^3/uL (0-1.3); Monocytes % (auto) 7.8 % (0.0-12.0); Neutrophils # (auto) 7.6 10 ^3/uL (1.6-8.6); Neutrophils % (auto) 67.8 % (37.0-80.0); Platelet Count (auto) 157 10^3/uL (140-450); Red Blood Cells 2.41 10^6/uL (4.0-5.20); Red Cell Distribution Width 17.7 % (11.8-14.3); White Blood Cell 11.1 10^3/uL (4.4-10.8)
[2020-07-23 05:35] LABS: INR 1.36 (0.9-1.15)
[2020-07-23 05:42] LABS: Potassium 3.6 mmol/L (3.5-5.1)
[2020-07-23 05:54] LABS: BUN/Creatinine Ratio 9.3; Calcium 7.7 mg/dL (8.5-10.1)
[2020-07-23] MEDS: MIDODRINE HCL 10 MG TAB PO SCH ×3 (06:00→21:30)
[2020-07-23] MEDS: ACCU-CHEK COMFORT CURVE STRIP VI SCH ×4 (06:37→21:34)
[2020-07-23] MEDS: InsuLIN REG 1unit/0.01ml Soln (100units/ml) SC SCH ×4 (06:37→21:34)
[2020-07-23] MEDS: SODIUM CHLOR 0.9% PF (SALINE LOCK) 10ML VIAL/SYR IV SCH ×2 (10:00→21:01)
[2020-07-23] MEDS: PHYTONADIONE(VitK) ORAL Susp 10mg/10ml(1mg/ml) PO SCH (10:00)
[2020-07-23] MEDS: PANTOPRAZOLE 40 MG TAB PO SCH (10:41)
[2020-07-23] MEDS: MICAFUNGIN SODIUM 100 MG in SODIUM CHL 0.9% 100 ML IV SCH (10:42)
[2020-07-23] MEDS: AMPICILLIN INJ 1 GM in SODIUM CHL 0.9% 50 ML IV SCH ×2 (10:42→21:34)
[2020-07-23] MEDS: NOREPINEPHRINE BITARTRATE 16 MG in SODIUM CHL 0.9% 234 ML IV SCH ×2 (18:00→22:20)
[2020-07-24] VITALS (71 sets, daily range): BP systolic 87–124; BP diastolic 30–48
[2020-07-24] MEDS: MIDODRINE HCL 10 MG TAB PO SCH ×3 (05:15→22:29)
[2020-07-24] MEDS: InsuLIN REG 1unit/0.01ml Soln (100units/ml) SC SCH ×4 (05:29→22:00)
[2020-07-24] MEDS: ACCU-CHEK COMFORT CURVE STRIP VI SCH ×4 (05:29→22:00)
[2020-07-24 05:39] LABS: Basophils # (auto) 0.2 10 ^3/uL (0-0.2); Basophils % (auto) 1.2 % (0.0-2.0); Eosinophils # (auto) 0.2 10 ^3/uL (0-0.8); Eosinophils % (auto) 1.6 % (0.0-7.0); Hematocrit 22.3 % (36.0-46.0); Hemoglobin 7.3 g/dL (12.2-16.2); Lymphocytes # (auto) 3.4 10 ^3/uL (0.4-5.4); Lymphocytes % (auto) 25.2 % (10.0-50.0); Mean Corpuscular Hemoglobin 31.5 pg (28.0-32.0); Mean Corpuscular Hgb Conc. 32.8 g/dL (32.0-36.0); Mean Corpuscular Volume 96.2 fL (80.0-100.0); Monocytes # (auto) 1.1 10 ^3/uL (0-1.3); Monocytes % (auto) 8.3 % (0.0-12.0); Neutrophils # (auto) 8.7 10 ^3/uL (1.6-8.6); Neutrophils % (auto) 63.7 % (37.0-80.0); Platelet Count (auto) 141 10^3/uL (140-450); Red Blood Cells 2.32 10^6/uL (4.0-5.20); Red Cell Distribution Width 17.8 % (11.8-14.3); White Blood Cell 13.6 10^3/uL (4.4-10.8)
[2020-07-24 05:54] LABS: INR 1.34 (0.9-1.15); Partial Thromboplastin Time 37.5 sec (23.0-31.2)
[2020-07-24 06:04] LABS: Calcium 7.7 mg/dL (8.5-10.1)
[2020-07-24 06:08] LABS: BUN/Creatinine Ratio 10.3
[2020-07-24] MEDS: AMPICILLIN INJ 1 GM in SODIUM CHL 0.9% 50 ML IV SCH ×2 (09:32→22:29)
[2020-07-24] MEDS: PANTOPRAZOLE 40 MG TAB PO SCH (09:32)
[2020-07-24] MEDS: PHYTONADIONE(VitK) ORAL Susp 10mg/10ml(1mg/ml) PO SCH (09:32)
[2020-07-24] MEDS: MICAFUNGIN SODIUM 100 MG in SODIUM CHL 0.9% 100 ML IV SCH (10:27)
[2020-07-24] MEDS: SODIUM CHLOR 0.9% PF (SALINE LOCK) 10ML VIAL/SYR IV SCH ×2 (10:27→22:29)
[2020-07-24] MEDS ORDERED: FLORASTOR (S. BOULARDII) 250 MG CAP PO ONE (11:43)
[2020-07-24] MEDS ORDERED: DOXYCYCLINE 100MG/250ML 250 ML IV ONE (11:45)
[2020-07-24] MEDS: DOXYCYCLINE 100MG/250ML 250 ML IV SCH (23:01)
[2020-07-25] VITALS (54 sets, daily range): BP systolic 67–124; BP diastolic 27–67
[2020-07-25] MEDS: ACCU-CHEK COMFORT CURVE STRIP VI SCH ×4 (05:14→21:40)
[2020-07-25] MEDS: InsuLIN REG 1unit/0.01ml Soln (100units/ml) SC SCH ×4 (05:14→21:40)
[2020-07-25] MEDS: MIDODRINE HCL 10 MG TAB PO SCH ×3 (06:00→21:28)
[2020-07-25 06:43] LABS: Basophils # (auto) 0.2 10 ^3/uL (0-0.2); Hemoglobin 7.2 g/dL (12.2-16.2); Lymphocytes # (auto) 3.1 10 ^3/uL (0.4-5.4)
[2020-07-25 06:45] LABS: Basophils % (auto) 1.5 % (0.0-2.0); Eosinophils # (auto) 0.2 10 ^3/uL (0-0.8); Eosinophils % (auto) 1.7 % (0.0-7.0); Hematocrit 21.9 % (36.0-46.0); Lymphocytes % (auto) 24.5 % (10.0-50.0); Mean Corpuscular Hemoglobin 31.6 pg (28.0-32.0); Mean Corpuscular Volume 95.9 fL (80.0-100.0); Monocytes # (auto) 1.2 10 ^3/uL (0-1.3); Monocytes % (auto) 9.7 % (0.0-12.0); Neutrophils % (auto) 62.6 % (37.0-80.0); Platelet Count (auto) 140 10^3/uL (140-450); Red Blood Cells 2.28 10^6/uL (4.0-5.20); Red Cell Distribution Width 17.5 % (11.8-14.3); White Blood Cell 12.8 10^3/uL (4.4-10.8)
[2020-07-25 06:47] LABS: Potassium 4.4 mmol/L (3.5-5.1)
[2020-07-25 06:54] LABS: BUN/Creatinine Ratio 9.7; Calcium 7.7 mg/dL (8.5-10.1)
[2020-07-25] MEDS ORDERED: IOHEXOL 350 MG/ML 100ML IJ ONE (07:16)
[2020-07-25] MEDS ORDERED: LIDOCAINE 2%HCL (LOCAL ANESTH.) INJ 20ML MDV ONE (07:16)
[2020-07-25] MEDS ORDERED: HEPARIN SODIUM (PORCINE) 5000 UNITS/ML 1ML VIAL ONE (08:35)
[2020-07-25] MEDS ORDERED: fentaNYL CITRATE 100 MCG/2 ML VL ONE (08:36)
[2020-07-25] MEDS: PANTOPRAZOLE 40 MG TAB PO SCH (09:31)
[2020-07-25] MEDS: FLORASTOR (S. BOULARDII) 250 MG CAP PO SCH (09:32)
[2020-07-25] MEDS: SODIUM CHLOR 0.9% PF (SALINE LOCK) 10ML VIAL/SYR IV SCH ×2 (09:33→21:28)
[2020-07-25] MEDS: PHYTONADIONE(VitK) ORAL Susp 10mg/10ml(1mg/ml) PO SCH (09:33)
[2020-07-25] MEDS: AMPICILLIN INJ 1 GM in SODIUM CHL 0.9% 50 ML IV SCH ×2 (09:33→21:28)
[2020-07-25] MEDS ORDERED: ALBUMIN 25% 100 ML IV ONE (10:17)
[2020-07-25] MEDS ORDERED: NOREPINEPHRINE 8 MG/250ML KIT 250 ML IV ONE (10:33)
[2020-07-25] MEDS ORDERED: NOREPINEPHRINE 8 MG/250ML KIT 250 ML IV SCH (10:45)
[2020-07-25] MEDS: MICAFUNGIN SODIUM 100 MG in SODIUM CHL 0.9% 100 ML IV SCH (12:40)
[2020-07-25] MEDS: DOXYCYCLINE 100MG/250ML 250 ML IV SCH (13:00)
[2020-07-25] MEDS ORDERED: EPOETIN ALFA-EPBX 4,000 UNIT/ML VIAL SC ONE (21:00)
[2020-07-26] VITALS (15 sets, daily range): BP systolic 95–122; BP diastolic 24–54
[2020-07-26 04:14] LABS: Basophils # (auto) 0.2 10 ^3/uL (0-0.2); Eosinophils # (auto) 0.1 10 ^3/uL (0-0.8); Hematocrit 20.1 % (36.0-46.0); Lymphocytes # (auto) 2.2 10 ^3/uL (0.4-5.4); Neutrophils # (auto) 6.8 10 ^3/uL (1.6-8.6); Red Blood Cells 2.13 10^6/uL (4.0-5.20)
[2020-07-26 04:18] LABS: Eosinophils % (auto) 1.1 % (0.0-7.0); Lymphocytes % (auto) 21.2 % (10.0-50.0); Mean Corpuscular Hemoglobin 32.9 pg (28.0-32.0); Mean Corpuscular Hgb Conc. 34.9 g/dL (32.0-36.0); Mean Corpuscular Volume 94.1 fL (80.0-100.0); Monocytes % (auto) 9.4 % (0.0-12.0); Neutrophils % (auto) 66.3 % (37.0-80.0); Nucleated Red Blood Cells % 0.2 %; Platelet Count (auto) 91 10^3/uL (140-450); White Blood Cell 10.3 10^3/uL (4.4-10.8)
[2020-07-26 04:34] LABS: BUN/Creatinine Ratio 8.8; Calcium 7.7 mg/dL (8.5-10.1); Potassium 4.1 mmol/L (3.5-5.1)
[2020-07-26] MEDS: MIDODRINE HCL 10 MG TAB PO SCH ×3 (06:00→21:46)
[2020-07-26] MEDS: InsuLIN REG 1unit/0.01ml Soln (100units/ml) SC SCH ×4 (06:15→21:46)
[2020-07-26] MEDS: ACCU-CHEK COMFORT CURVE STRIP VI SCH ×4 (06:16→21:46)
[2020-07-26] MEDS: PHYTONADIONE(VitK) ORAL Susp 10mg/10ml(1mg/ml) PO SCH (10:00)
[2020-07-26] MEDS: SODIUM CHLOR 0.9% PF (SALINE LOCK) 10ML VIAL/SYR IV SCH ×2 (10:00→21:46)
[2020-07-26] MEDS: FLORASTOR (S. BOULARDII) 250 MG CAP PO SCH (10:08)
[2020-07-26] MEDS: PANTOPRAZOLE 40 MG TAB PO SCH (10:08)
[2020-07-26] MEDS: AMPICILLIN INJ 1 GM in SODIUM CHL 0.9% 50 ML IV SCH (10:08)
[2020-07-26] MEDS: MICAFUNGIN SODIUM 100 MG in SODIUM CHL 0.9% 100 ML IV SCH (11:27)
[2020-07-26] MEDS ORDERED: SODIUM FERR GLUC 62.5MG/5ML 125 MG in SODIUM CHL 0.9% 100 ML IV ONE (15:30)
[2020-07-26 16:04] LABS: Hemoglobin 7.2 g/dL (12.2-16.2)
[2020-07-26 16:06] LABS: Hematocrit 21.8 % (36.0-46.0)
[2020-07-26 17:57] LABS: % Iron Saturation 73.3 % (15-50)
[2020-07-27 05:00] VITALS: BP 106/49
[2020-07-27] MEDS: ACCU-CHEK COMFORT CURVE STRIP VI SCH ×4 (05:55→21:57)
[2020-07-27] MEDS: InsuLIN REG 1unit/0.01ml Soln (100units/ml) SC SCH ×4 (05:55→21:57)
[2020-07-27] MEDS: MIDODRINE HCL 10 MG TAB PO SCH ×3 (05:55→21:57)
[2020-07-27] MEDS ORDERED: VANCOMYCIN PER PHARMACY 0 MG IV SCH (08:00)
[2020-07-27 08:11] LABS: Basophils # (auto) 0.1 10 ^3/uL (0-0.2); Basophils % (auto) 0.9 % (0.0-2.0); Eosinophils # (auto) 0.1 10 ^3/uL (0-0.8); Eosinophils % (auto) 0.5 % (0.0-7.0); Hematocrit 23.2 % (36.0-46.0); Hemoglobin 7.5 g/dL (12.2-16.2); Lymphocytes # (auto) 2.8 10 ^3/uL (0.4-5.4); Lymphocytes % (auto) 23.4 % (10.0-50.0); Mean Corpuscular Hemoglobin 30.6 pg (28.0-32.0); Mean Corpuscular Hgb Conc. 32.3 g/dL (32.0-36.0); Mean Corpuscular Volume 94.7 fL (80.0-100.0); Monocytes % (auto) 8.5 % (0.0-12.0); Neutrophils # (auto) 8.1 10 ^3/uL (1.6-8.6); Neutrophils % (auto) 66.7 % (37.0-80.0); Nucleated Red Blood Cells % 0.1 %; Platelet Count (auto) 110 10^3/uL (140-450); Red Blood Cells 2.45 10^6/uL (4.0-5.20); Red Cell Distribution Width 17.5 % (11.8-14.3); White Blood Cell 12.1 10^3/uL (4.4-10.8)
[2020-07-27 08:49] LABS: BUN/Creatinine Ratio 9.3; Calcium 8.2 mg/dL (8.5-10.1); Potassium 4.7 mmol/L (3.5-5.1)
[2020-07-27 09:00] VITALS: BP 120/53
[2020-07-27] MEDS ORDERED: IMMUNE GLOBULIN IV SCH (10:00)
[2020-07-27] MEDS: PANTOPRAZOLE 40 MG TAB PO SCH (10:57)
[2020-07-27] MEDS: FLORASTOR (S. BOULARDII) 250 MG CAP PO SCH (10:57)
[2020-07-27] MEDS: SODIUM CHLOR 0.9% PF (SALINE LOCK) 10ML VIAL/SYR IV SCH ×2 (10:57→21:57)
[2020-07-27] MEDS ORDERED: VANCOMYCIN 1GM/250ML 250 ML IV ONE (11:00)
[2020-07-27] MEDS: SODIUM FERR GLUC 62.5MG/5ML 125 MG in SODIUM CHL 0.9% 100 ML IV SCH (12:49)
[2020-07-27 13:00] VITALS: BP 99/45
[2020-07-27 22:00] VITALS: BP 119/57
[2020-07-28 05:00] VITALS: BP 108/41
[2020-07-28] MEDS: ACCU-CHEK COMFORT CURVE STRIP VI SCH ×4 (05:28→21:39)
[2020-07-28] MEDS: InsuLIN REG 1unit/0.01ml Soln (100units/ml) SC SCH ×4 (05:28→21:39)
[2020-07-28] MEDS: MIDODRINE HCL 10 MG TAB PO SCH ×3 (05:28→21:39)
[2020-07-28 08:28] VITALS: BP 150/76
[2020-07-28] MEDS: SODIUM CHLOR 0.9% PF (SALINE LOCK) 10ML VIAL/SYR IV SCH ×2 (09:42→21:39)
[2020-07-28] MEDS: FLORASTOR (S. BOULARDII) 250 MG CAP PO SCH (09:42)
[2020-07-28] MEDS: PANTOPRAZOLE 40 MG TAB PO SCH (09:43)
[2020-07-28] MEDS: ONDANSETRON HCL 4 MG/2 ML VIAL IV PRN ×2 (10:06→23:04)
[2020-07-28] MEDS: ALBUMIN 25% 100 ML IV SCH ×2 (11:17→11:57)
[2020-07-28 12:37] VITALS: BP 98/56
[2020-07-28] MEDS: SODIUM FERR GLUC 62.5MG/5ML 125 MG in SODIUM CHL 0.9% 100 ML IV SCH (14:03)
[2020-07-28 16:46] VITALS: BP 90/49
[2020-07-28] MEDS ORDERED: VANCOMYCIN 500 MG in D5W 5% 100 ML IV ONE ×2 (21:00→22:00)
[2020-07-28] MEDS ORDERED: EPOETIN ALFA-EPBX 10,000 UNIT/1ML VIAL SC ONE (21:00)
[2020-07-28 22:00] VITALS: BP 108/49
[2020-07-29] VITALS (8 sets, daily range): BP systolic 101–139; BP diastolic 42–87
[2020-07-29] MEDS: MIDODRINE HCL 10 MG TAB PO SCH ×3 (06:00→21:53)
[2020-07-29] MEDS: InsuLIN REG 1unit/0.01ml Soln (100units/ml) SC SCH ×4 (06:27→21:54)
[2020-07-29] MEDS: ACCU-CHEK COMFORT CURVE STRIP VI SCH ×4 (06:27→21:53)
[2020-07-29 07:39] LABS: Basophils # (auto) 0.1 10 ^3/uL (0-0.2); Eosinophils # (auto) 0.1 10 ^3/uL (0-0.8); Mean Corpuscular Hemoglobin 31.4 pg (28.0-32.0); Monocytes # (auto) 0.7 10 ^3/uL (0-1.3); Nucleated Red Blood Cells % 0.2 %; Red Cell Distribution Width 17.8 % (11.8-14.3)
[2020-07-29 07:42] LABS: Basophils % (auto) 1.1 % (0.0-2.0); Eosinophils % (auto) 0.9 % (0.0-7.0); Hematocrit 21.1 % (36.0-46.0); Lymphocytes # (auto) 2.3 10 ^3/uL (0.4-5.4); Lymphocytes % (auto) 26.3 % (10.0-50.0); Mean Corpuscular Hgb Conc. 32.7 g/dL (32.0-36.0); Monocytes % (auto) 8.5 % (0.0-12.0); Neutrophils # (auto) 5.5 10 ^3/uL (1.6-8.6); Neutrophils % (auto) 63.2 % (37.0-80.0); Platelet Count (auto) 69 10^3/uL (140-450); White Blood Cell 8.7 10^3/uL (4.4-10.8)
[2020-07-29 07:44] LABS: Hemoglobin 6.9 g/dL (12.2-16.2)
[2020-07-29 08:06] LABS: BUN/Creatinine Ratio 8.8
[2020-07-29] MEDS: SODIUM CHLOR 0.9% PF (SALINE LOCK) 10ML VIAL/SYR IV SCH ×2 (10:00→21:53)
[2020-07-29 11:34] LABS: Hepatitis B Surface Antibody Negative
[2020-07-29] MEDS ORDERED: FUROSEMIDE 40 MG/4 ML VIAL IV ONE (12:00)
[2020-07-29 12:04] LABS: Hepatitis A Total Antibody Positive
[2020-07-29] MEDS: SODIUM FERR GLUC 62.5MG/5ML 125 MG in SODIUM CHL 0.9% 100 ML IV SCH (13:02)
[2020-07-29] MEDS: FLORASTOR (S. BOULARDII) 250 MG CAP PO SCH (13:03)
[2020-07-29] MEDS: PANTOPRAZOLE 40 MG TAB PO SCH (13:03)
[2020-07-29 14:52] LABS: Hematocrit 28.5 % (36.0-46.0); Hemoglobin 9.5 g/dL (12.2-16.2)
[2020-07-29 15:29] LABS: Hepatitis B Surface Antigen Negative (Negative)
[2020-07-29 15:30] LABS: Hepatitis B Core Total AB Negative
[2020-07-29 15:31] LABS: Hepatitis C Antibody Negative (Negative)
[2020-07-30 05:00] VITALS: BP 124/46
[2020-07-30] MEDS: MIDODRINE HCL 10 MG TAB PO SCH ×3 (06:02→22:05)
[2020-07-30] MEDS: InsuLIN REG 1unit/0.01ml Soln (100units/ml) SC SCH ×4 (06:02→22:00)
[2020-07-30] MEDS: ACCU-CHEK COMFORT CURVE STRIP VI SCH ×4 (06:02→22:05)
[2020-07-30 07:18] LABS: Basophils # (auto) 0.1 10 ^3/uL (0-0.2); Basophils % (auto) 0.9 % (0.0-2.0); Eosinophils # (auto) 0.1 10 ^3/uL (0-0.8); Eosinophils % (auto) 0.6 % (0.0-7.0); Hemoglobin 9.8 g/dL (12.2-16.2); Lymphocytes # (auto) 3.3 10 ^3/uL (0.4-5.4); Lymphocytes % (auto) 31.1 % (10.0-50.0); Mean Corpuscular Hemoglobin 31.8 pg (28.0-32.0); Mean Corpuscular Hgb Conc. 33.9 g/dL (32.0-36.0); Mean Corpuscular Volume 93.9 fL (80.0-100.0); Monocytes # (auto) 0.7 10 ^3/uL (0-1.3); Monocytes % (auto) 6.5 % (0.0-12.0); Neutrophils # (auto) 6.4 10 ^3/uL (1.6-8.6); Neutrophils % (auto) 60.9 % (37.0-80.0); Nucleated Red Blood Cells % 0.2 %; Platelet Count (auto) 93 10^3/uL (140-450); Red Blood Cells 3.09 10^6/uL (4.0-5.20); Red Cell Distribution Width 17.6 % (11.8-14.3); White Blood Cell 10.5 10^3/uL (4.4-10.8)
[2020-07-30 07:53] LABS: Magnesium 2.3 mg/dL (1.6-2.6)
[2020-07-30] MEDS: ALBUMIN 25% 100 ML IV SCH ×2 (08:23→10:00)
[2020-07-30 09:00] VITALS: BP 113/52
[2020-07-30] MEDS: SODIUM CHLOR 0.9% PF (SALINE LOCK) 10ML VIAL/SYR IV SCH ×2 (10:00→22:04)
[2020-07-30] MEDS: FLORASTOR (S. BOULARDII) 250 MG CAP PO SCH (12:09)
[2020-07-30] MEDS: SODIUM FERR GLUC 62.5MG/5ML 125 MG in SODIUM CHL 0.9% 100 ML IV SCH (12:09)
[2020-07-30] MEDS: PANTOPRAZOLE 40 MG TAB PO SCH (12:09)
[2020-07-30 13:00] VITALS: BP 109/45
[2020-07-30] MEDS ORDERED: VANCOMYCIN 500 MG in D5W 5% 100 ML IV ONE (13:00)
[2020-07-30 17:00] VITALS: BP 113/49
[2020-07-30 18:37] VITALS: BP 105/42
[2020-07-30] MEDS ORDERED: EPOETIN ALFA-EPBX 4,000 UNIT/ML VIAL SC ONE (21:00)
[2020-07-30 22:00] VITALS: BP 119/50
[2020-07-31 05:00] VITALS: BP 123/60
[2020-07-31] MEDS: MIDODRINE HCL 10 MG TAB PO SCH ×3 (05:27→22:00)
[2020-07-31] MEDS: ACCU-CHEK COMFORT CURVE STRIP VI SCH ×4 (06:04→22:00)
[2020-07-31] MEDS: InsuLIN REG 1unit/0.01ml Soln (100units/ml) SC SCH ×4 (06:04→22:00)
[2020-07-31 09:00] VITALS: BP 104/48
[2020-07-31] MEDS: SODIUM CHLOR 0.9% PF (SALINE LOCK) 10ML VIAL/SYR IV SCH ×2 (09:56→22:00)
[2020-07-31] MEDS: FLORASTOR (S. BOULARDII) 250 MG CAP PO SCH (09:57)
[2020-07-31] MEDS: PANTOPRAZOLE 40 MG TAB PO SCH (09:58)
[2020-07-31] MEDS: SODIUM FERR GLUC 62.5MG/5ML 125 MG in SODIUM CHL 0.9% 100 ML IV SCH (12:14)
[2020-07-31 13:00] VITALS: BP 113/45
[2020-07-31 13:20] LABS: Basophils # (auto) 0.1 10 ^3/uL (0-0.2); Eosinophils # (auto) 0.1 10 ^3/uL (0-0.8); Hemoglobin 9.2 g/dL (12.2-16.2); Mean Corpuscular Hgb Conc. 32.9 g/dL (32.0-36.0); Mean Corpuscular Volume 93.9 fL (80.0-100.0); Nucleated Red Blood Cells % 0.1 %
[2020-07-31 13:22] LABS: Basophils % (auto) 1.4 % (0.0-2.0); Eosinophils % (auto) 0.7 % (0.0-7.0); Hematocrit 27.9 % (36.0-46.0); Lymphocytes # (auto) 2.6 10 ^3/uL (0.4-5.4); Lymphocytes % (auto) 28.5 % (10.0-50.0); Mean Corpuscular Hemoglobin 30.9 pg (28.0-32.0); Monocytes # (auto) 0.8 10 ^3/uL (0-1.3); Monocytes % (auto) 8.9 % (0.0-12.0); Neutrophils # (auto) 5.5 10 ^3/uL (1.6-8.6); Neutrophils % (auto) 60.5 % (37.0-80.0); Platelet Count (auto) 56 10^3/uL (140-450); Red Blood Cells 2.97 10^6/uL (4.0-5.20); Red Cell Distribution Width 17.7 % (11.8-14.3); White Blood Cell 9.1 10^3/uL (4.4-10.8)
[2020-07-31 13:49] LABS: BUN/Creatinine Ratio 7.7; Calcium 7.9 mg/dL (8.5-10.1); Potassium 3.6 mmol/L (3.5-5.1)
[2020-07-31 16:28] VITALS: BP 110/51
[2020-07-31 22:21] VITALS: BP 124/54
[2020-08-01 05:33] VITALS: BP 110/50
[2020-08-01] MEDS: ACCU-CHEK COMFORT CURVE STRIP VI SCH ×4 (06:01→21:54)
[2020-08-01] MEDS: MIDODRINE HCL 10 MG TAB PO SCH ×3 (06:01→21:53)
[2020-08-01] MEDS: InsuLIN REG 1unit/0.01ml Soln (100units/ml) SC SCH ×4 (06:57→21:54)
[2020-08-01 09:00] VITALS: BP_SYST 120; BP_SYST 125; BP_DIAS 50; BP_DIAS 59
[2020-08-01] MEDS: PANTOPRAZOLE 40 MG TAB PO SCH (10:00)
[2020-08-01] MEDS: SODIUM CHLOR 0.9% PF (SALINE LOCK) 10ML VIAL/SYR IV SCH ×2 (10:00→21:53)
[2020-08-01] MEDS: FLORASTOR (S. BOULARDII) 250 MG CAP PO SCH (10:00)
[2020-08-01] MEDS ORDERED: MID10T PO (10:52)
[2020-08-01 11:32] VITALS: BP 110/48
[2020-08-01] MEDS: SODIUM FERR GLUC 62.5MG/5ML 125 MG in SODIUM CHL 0.9% 100 ML IV SCH (11:59)
[2020-08-01 13:00] VITALS: BP 125/59
[2020-08-01] MEDS: ONDANSETRON HCL 4 MG/2 ML VIAL IV PRN (14:44)
[2020-08-01 17:00] VITALS: BP 113/64
[2020-08-01 22:00] VITALS: BP 108/48
[2020-08-02 05:00] VITALS: BP 119/54
[2020-08-02] MEDS: ACCU-CHEK COMFORT CURVE STRIP VI SCH ×4 (06:42→21:30)
[2020-08-02] MEDS: MIDODRINE HCL 10 MG TAB PO SCH ×3 (06:42→21:52)
[2020-08-02] MEDS: InsuLIN REG 1unit/0.01ml Soln (100units/ml) SC SCH ×4 (06:42→21:31)
[2020-08-02 07:36] LABS: Calcium 8.3 mg/dL (8.5-10.1); Potassium 3.9 mmol/L (3.5-5.1)
[2020-08-02 09:00] VITALS: BP 98/46
[2020-08-02] MEDS: FLORASTOR (S. BOULARDII) 250 MG CAP PO SCH (10:00)
[2020-08-02] MEDS: PANTOPRAZOLE 40 MG TAB PO SCH (10:00)
[2020-08-02] MEDS: SODIUM CHLOR 0.9% PF (SALINE LOCK) 10ML VIAL/SYR IV SCH ×2 (10:10→21:30)
[2020-08-02] MEDS: ONDANSETRON HCL 4 MG/2 ML VIAL IV PRN ×2 (10:10→21:32)
[2020-08-02] MEDS: SODIUM FERR GLUC 62.5MG/5ML 125 MG in SODIUM CHL 0.9% 100 ML IV SCH (12:00)
[2020-08-02 13:00] VITALS: BP 111/56
[2020-08-02 16:54] VITALS: BP 119/58
[2020-08-02 23:24] VITALS: BP 110/55
[2020-08-03 05:00] VITALS: BP 114/48
[2020-08-03 05:52] LABS: Basophils # (auto) 0.1 10 ^3/uL (0-0.2); Basophils % (auto) 0.8 % (0.0-2.0); Eosinophils # (auto) 0.1 10 ^3/uL (0-0.8); Eosinophils % (auto) 0.7 % (0.0-7.0); Hematocrit 29.8 % (36.0-46.0); Hemoglobin 9.8 g/dL (12.2-16.2); Lymphocytes % (auto) 31.8 % (10.0-50.0); Mean Corpuscular Hemoglobin 31.4 pg (28.0-32.0); Mean Corpuscular Volume 95.3 fL (80.0-100.0); Monocytes # (auto) 1.5 10 ^3/uL (0-1.3); Monocytes % (auto) 9.4 % (0.0-12.0); Neutrophils # (auto) 9.1 10 ^3/uL (1.6-8.6); Neutrophils % (auto) 57.3 % (37.0-80.0); Nucleated Red Blood Cells % 0.3 %; Platelet Count (auto) 106 10^3/uL (140-450); Red Blood Cells 3.12 10^6/uL (4.0-5.20); Red Cell Distribution Width 19.3 % (11.8-14.3); White Blood Cell 15.8 10^3/uL (4.4-10.8)
[2020-08-03 05:59] LABS: Potassium 3.9 mmol/L (3.5-5.1)
[2020-08-03 06:06] LABS: BUN/Creatinine Ratio 9.9; Calcium 8.4 mg/dL (8.5-10.1)
[2020-08-03] MEDS: FUROSEMIDE 40 MG/4 ML VIAL IV SCH ×2 (06:08→17:41)
[2020-08-03] MEDS: MIDODRINE HCL 10 MG TAB PO SCH ×3 (06:09→22:24)
[2020-08-03] MEDS: ACCU-CHEK COMFORT CURVE STRIP VI SCH ×4 (06:09→22:24)
[2020-08-03] MEDS: InsuLIN REG 1unit/0.01ml Soln (100units/ml) SC SCH ×4 (07:00→22:00)
[2020-08-03 08:28] VITALS: BP 128/58
[2020-08-03] MEDS: PANTOPRAZOLE 40 MG TAB PO SCH (09:32)
[2020-08-03] MEDS: FLORASTOR (S. BOULARDII) 250 MG CAP PO SCH (09:32)
[2020-08-03] MEDS: SODIUM CHLOR 0.9% PF (SALINE LOCK) 10ML VIAL/SYR IV SCH ×2 (09:33→22:25)
[2020-08-03 12:42] VITALS: BP 128/54
[2020-08-03 16:47] VITALS: BP 129/55
[2020-08-03 22:00] VITALS: BP 110/41
[2020-08-04 05:00] VITALS: BP 95/50
[2020-08-04] MEDS: MIDODRINE HCL 10 MG TAB PO SCH ×3 (06:04→22:12)
[2020-08-04] MEDS: FUROSEMIDE 40 MG/4 ML VIAL IV SCH ×2 (06:04→17:25)
[2020-08-04] MEDS: ACCU-CHEK COMFORT CURVE STRIP VI SCH ×4 (06:24→22:12)
[2020-08-04] MEDS: InsuLIN REG 1unit/0.01ml Soln (100units/ml) SC SCH ×4 (06:24→22:00)
[2020-08-04 06:29] LABS: Basophils # (auto) 0.2 10 ^3/uL (0-0.2); Basophils % (auto) 1.3 % (0.0-2.0); Eosinophils # (auto) 0.2 10 ^3/uL (0-0.8); Eosinophils % (auto) 1.3 % (0.0-7.0); Hematocrit 29.6 % (36.0-46.0); Hemoglobin 9.9 g/dL (12.2-16.2); Lymphocytes # (auto) 4.4 10 ^3/uL (0.4-5.4); Lymphocytes % (auto) 33.8 % (10.0-50.0); Mean Corpuscular Hemoglobin 31.8 pg (28.0-32.0); Mean Corpuscular Hgb Conc. 33.3 g/dL (32.0-36.0); Mean Corpuscular Volume 95.7 fL (80.0-100.0); Monocytes # (auto) 1.2 10 ^3/uL (0-1.3); Monocytes % (auto) 9.2 % (0.0-12.0); Neutrophils # (auto) 7.1 10 ^3/uL (1.6-8.6); Neutrophils % (auto) 54.4 % (37.0-80.0); Nucleated Red Blood Cells % 0.1 %; Platelet Count (auto) 98 10^3/uL (140-450); Red Cell Distribution Width 19.8 % (11.8-14.3)
[2020-08-04 06:41] LABS: Calcium 8.1 mg/dL (8.5-10.1)
[2020-08-04 06:44] LABS: BUN/Creatinine Ratio 9.9
[2020-08-04 09:00] VITALS: BP 122/53
[2020-08-04] MEDS: SODIUM CHLOR 0.9% PF (SALINE LOCK) 10ML VIAL/SYR IV SCH ×2 (09:31→22:13)
[2020-08-04] MEDS: PANTOPRAZOLE 40 MG TAB PO SCH (09:31)
[2020-08-04] MEDS: FLORASTOR (S. BOULARDII) 250 MG CAP PO SCH (09:31)
[2020-08-04] MEDS: ONDANSETRON HCL 4 MG/2 ML VIAL IV PRN ×2 (09:38→21:10)
[2020-08-04 12:55] VITALS: BP 132/61
[2020-08-04 17:00] VITALS: BP 138/69
[2020-08-04 22:00] VITALS: BP 107/48
[2020-08-05 05:00] VITALS: BP 121/64
[2020-08-05] MEDS: FUROSEMIDE 40 MG/4 ML VIAL IV SCH ×2 (06:06→18:23)
[2020-08-05] MEDS: MIDODRINE HCL 10 MG TAB PO SCH ×3 (06:06→22:55)
[2020-08-05 06:09] LABS: Basophils # (auto) 0.1 10 ^3/uL (0-0.2); Basophils % (auto) 0.9 % (0.0-2.0); Eosinophils # (auto) 0.1 10 ^3/uL (0-0.8); Eosinophils % (auto) 1.3 % (0.0-7.0); Hemoglobin 9.9 g/dL (12.2-16.2); Lymphocytes # (auto) 2.9 10 ^3/uL (0.4-5.4); Lymphocytes % (auto) 26.6 % (10.0-50.0); Mean Corpuscular Hemoglobin 32.5 pg (28.0-32.0); Mean Corpuscular Hgb Conc. 34.1 g/dL (32.0-36.0); Mean Corpuscular Volume 95.4 fL (80.0-100.0); Monocytes # (auto) 0.9 10 ^3/uL (0-1.3); Monocytes % (auto) 8.5 % (0.0-12.0); Neutrophils # (auto) 6.8 10 ^3/uL (1.6-8.6); Neutrophils % (auto) 62.7 % (37.0-80.0); Nucleated Red Blood Cells % 0.1 %; Platelet Count (auto) 95 10^3/uL (140-450); Red Blood Cells 3.04 10^6/uL (4.0-5.20); Red Cell Distribution Width 19.7 % (11.8-14.3); White Blood Cell 10.8 10^3/uL (4.4-10.8)
[2020-08-05 06:36] LABS: Potassium 4.1 mmol/L (3.5-5.1)
[2020-08-05] MEDS: ACCU-CHEK COMFORT CURVE STRIP VI SCH ×4 (06:43→22:56)
[2020-08-05] MEDS: InsuLIN REG 1unit/0.01ml Soln (100units/ml) SC SCH ×4 (06:43→22:56)
[2020-08-05 06:44] LABS: BUN/Creatinine Ratio 10.2; Bilirubin, Total 12.7 mg/dL (0.2-1.0); Calcium 8.1 mg/dL (8.5-10.1); Total Protein 5.9 g/dL (6.4-8.2)
[2020-08-05] MEDS: ONDANSETRON HCL 4 MG/2 ML VIAL IV PRN (08:19)
[2020-08-05 09:00] VITALS: BP 104/52
[2020-08-05] MEDS: PANTOPRAZOLE 40 MG TAB PO SCH (09:54)
[2020-08-05] MEDS: FLORASTOR (S. BOULARDII) 250 MG CAP PO SCH (09:54)
[2020-08-05] MEDS: SODIUM CHLOR 0.9% PF (SALINE LOCK) 10ML VIAL/SYR IV SCH ×2 (10:02→22:55)
[2020-08-05 13:00] VITALS: BP 130/67
[2020-08-05 17:00] VITALS: BP 105/47
[2020-08-05 22:00] VITALS: BP 111/55
[2020-08-06 05:00] VITALS: BP 99/45
[2020-08-06] MEDS: FUROSEMIDE 40 MG/4 ML VIAL IV SCH (06:00)
[2020-08-06] MEDS: MIDODRINE HCL 10 MG TAB PO SCH ×2 (06:21→14:00)
[2020-08-06 06:29] LABS: Basophils # (auto) 0.2 10 ^3/uL (0-0.2); Basophils % (auto) 1.3 % (0.0-2.0); Eosinophils # (auto) 0.1 10 ^3/uL (0-0.8); Eosinophils % (auto) 0.8 % (0.0-7.0); Hematocrit 30.1 % (36.0-46.0); Hemoglobin 10.1 g/dL (12.2-16.2); Lymphocytes # (auto) 3.2 10 ^3/uL (0.4-5.4); Lymphocytes % (auto) 26.8 % (10.0-50.0); Mean Corpuscular Hemoglobin 31.9 pg (28.0-32.0); Mean Corpuscular Hgb Conc. 33.5 g/dL (32.0-36.0); Mean Corpuscular Volume 95.2 fL (80.0-100.0); Monocytes # (auto) 0.9 10 ^3/uL (0-1.3); Monocytes % (auto) 7.6 % (0.0-12.0); Neutrophils # (auto) 7.6 10 ^3/uL (1.6-8.6); Neutrophils % (auto) 63.5 % (37.0-80.0); Nucleated Red Blood Cells % 0.3 %; Platelet Count (auto) 63 10^3/uL (140-450); Red Blood Cells 3.16 10^6/uL (4.0-5.20); Red Cell Distribution Width 19.7 % (11.8-14.3); White Blood Cell 11.9 10^3/uL (4.4-10.8)
[2020-08-06 06:44] LABS: Potassium 4.4 mmol/L (3.5-5.1)
[2020-08-06 06:59] LABS: BUN/Creatinine Ratio 8.7; Calcium 7.9 mg/dL (8.5-10.1); Magnesium 2.2 mg/dL (1.6-2.6)
[2020-08-06] MEDS: InsuLIN REG 1unit/0.01ml Soln (100units/ml) SC SCH (07:00)
[2020-08-06] MEDS: ACCU-CHEK COMFORT CURVE STRIP VI SCH (07:04)
[2020-08-06 09:00] VITALS: BP 101/52
[2020-08-06] MEDS: PANTOPRAZOLE 40 MG TAB PO SCH (10:12)
[2020-08-06] MEDS: SODIUM CHLOR 0.9% PF (SALINE LOCK) 10ML VIAL/SYR IV SCH (10:15)
[2020-08-06 12:48] VITALS: BP 101/52
[2020-08-06 13:00] VITALS: BP 127/54
[2020-08-06 17:16] VITALS: BP 117/58
== END 2020-08-06 17:10 | disposition home health service (06) | DRG 871 ==
LOC: TELE-EAST 23:31 → ICU WEST 07-12 11:33 → TELE-EAST 07-26 12:00
PROVIDERS: ADMIT Nurse Practitioner; ATTEND Internal Medicine
PROC: 30233N1 Transfusion of Nonautologous Red Blood Cells into Peripheral Vein, Percutaneous Approach (ICD-10-PCS; principal; 2020-07-11)
PROC: 5A1D70Z Performance of Urinary Filtration, Intermittent, Less than 6 Hours Per Day (ICD-10-PCS; 2020-07-12)
PROC: 02HV33Z Insertion of Infusion Device into Superior Vena Cava, Percutaneous Approach (ICD-10-PCS; 2020-07-15)
PROC: 5A1D70Z Performance of Urinary Filtration, Intermittent, Less than 6 Hours Per Day (ICD-10-PCS; 2020-07-15)
PROC: 5A1D70Z Performance of Urinary Filtration, Intermittent, Less than 6 Hours Per Day (ICD-10-PCS; 2020-07-16)
PROC: 5A1D70Z Performance of Urinary Filtration, Intermittent, Less than 6 Hours Per Day (ICD-10-PCS; 2020-07-19)
PROC: 5A1D70Z Performance of Urinary Filtration, Intermittent, Less than 6 Hours Per Day (ICD-10-PCS; 2020-07-23)
PROC: 02H633Z Insertion of Infusion Device into Right Atrium, Percutaneous Approach (ICD-10-PCS; 2020-07-25)
PROC: B548ZZA Ultrasonography of Superior Vena Cava, Guidance (ICD-10-PCS; 2020-07-25)
PROC: B5181ZA Fluoroscopy of Superior Vena Cava using Low Osmolar Contrast, Guidance (ICD-10-PCS; 2020-07-25)
PROC: 0JH63XZ Insertion of Tunneled Vascular Access Device into Chest Subcutaneous Tissue and Fascia, Percutaneous Approach (ICD-10-PCS; 2020-07-25)
PROC: 5A1D70Z Performance of Urinary Filtration, Intermittent, Less than 6 Hours Per Day (ICD-10-PCS; 2020-07-25)
PROC: 5A1D70Z Performance of Urinary Filtration, Intermittent, Less than 6 Hours Per Day (ICD-10-PCS; 2020-07-28)
PROC: 5A1D70Z Performance of Urinary Filtration, Intermittent, Less than 6 Hours Per Day (ICD-10-PCS; 2020-07-30)
PROC: 5A1D70Z Performance of Urinary Filtration, Intermittent, Less than 6 Hours Per Day (ICD-10-PCS; 2020-08-05)
DX: A41.9 Sepsis, unspecified organism (principal); N17.0 Acute kidney failure with tubular necrosis; E43 Unspecified severe protein-calorie malnutrition; J18.9 Pneumonia, unspecified organism; J96.00 Acute respiratory failure, unspecified whether with hypoxia or hypercapnia; R65.21 Severe sepsis with septic shock; K83.1 Obstruction of bile duct; N18.6 End stage renal disease; K83.09 Other cholangitis; C24.1 Malignant neoplasm of ampulla of Vater; C16.9 Malignant neoplasm of stomach, unspecified; D68.59 Other primary thrombophilia; E87.1 Hypo-osmolality and hyponatremia; I12.0 Hypertensive chronic kidney disease with stage 5 chronic kidney disease or end stage renal disease; M33.20 Polymyositis, organ involvement unspecified; E66.01 Morbid (severe) obesity due to excess calories; Z66 Do not resuscitate; D63.8 Anemia in other chronic diseases classified elsewhere; D69.6 Thrombocytopenia, unspecified; E11.22 Type 2 diabetes mellitus with diabetic chronic kidney disease; E11.51 Type 2 diabetes mellitus with diabetic peripheral angiopathy without gangrene; E78.5 Hyperlipidemia, unspecified; F17.200 Nicotine dependence, unspecified, uncomplicated; Z86.16 Personal history of COVID-19; Z83.3 Family history of diabetes mellitus; Z85.09 Personal history of malignant neoplasm of other digestive organs; Z87.01 Personal history of pneumonia (recurrent); Z99.2 Dependence on renal dialysis; Z20.822 Contact with and (suspected) exposure to COVID-19; B37.9 Candidiasis, unspecified; B95.2 Enterococcus as the cause of diseases classified elsewhere; Z68.34 Body mass index [BMI] 34.0-34.9, adult; Z79.84 Long term (current) use of oral hypoglycemic drugs
CPT/HCPCS: 36415; 36569; 36600; 71045; 73718; 76775; 76942; 80048; 80053; 80202; 81001; 82140; 82247; 82550; 82565; 82805; 82962; 83540; 83550; 83605; 83735; 84132; 84443; 84484; 85007; 85014; 85018; 85025; 85027; 85610; 85730; 86301; 86704; 86706; 86708; 86803; 86850; 86900; 86901; 86920; 87040; 87045; 87077; 87081; 87086; 87088; 87186; 87205; 87340; 87426; 87427; 90935; 93971; 97110; 97116; 97163; 97530; 99152; 99153; G0378; J1265; J1561; J1642; J1815; J2185; J2248; J2405; J2543; J3490; J7060; P9047